=== PATIENT | female | born 1985 | race Caucasian/White ===

== ENCOUNTER 2016-06-23 21:42 | Emergency (ER) | payer MEDICAID ==
[~2016-06-23] VITALS: Ht 162.6 cm; Wt 99.8 kg
--- NOTE | 2016-06-23 22:20 | NUR ---
TO BED 21 A 30 YO FEMALE BIBSELF AND REPORTED, "BEEN HAVING VAGINAL BLEEDING X3 WEEKS, ON AND OFF, WORSE THIS PAST 3 DAYS."PATIENT IS AAOX4, AMBULATORY WITH STEADY GAIT. X4, 1 ALIVE, 3 MISCARRIAGE. PER PATIENT SHE IS NOT AT THIS TIME. VSS. INITIATED COMFORT MEASURES. AWAITING FOR ER MD SCOTT.
[2016-06-23] MEDS ORDERED: IV NS 0.9% 1,000 ML BAG IV ONE (22:30)
--- NOTE | 2016-06-23 22:35 | NUR ---
LAC #20 IV ACCESS. BLOOD SAMPLE COLLECTED SENT TO LAB
[2016-06-23] MEDS ORDERED: IV NS 0.9% 1,000 ML ONE (22:40)
[2016-06-23] MEDS ORDERED: IV SET PRIMARY PUMP SET 1 EA INFUS.SET MC ONE (22:41)
[2016-06-23 22:44] LABS: BASOPHILS % (AUTO) 0.5 % (0.0-2.0); EOSINOPHILS # (AUTO) 0.2 /CMM (0.0-0.7); EOSINOPHILS % (AUTO) 1.9 % (0.0-6.0); HEMATOCRIT 43 % (33-45); HEMOGLOBIN 13.8 g/dL (11.5-14.8); LYMPHOCYTES # (AUTO) 2.8 /CMM (0.8-4.8); LYMPHOCYTES % (AUTO) 34.5 % (20.0-44.0); MEAN CORPUSCULAR HEMOGLOBIN 25 PG (26.0-33.0); MEAN CORPUSCULAR HGB CONC 32 g/dl (31.0-36.0); MEAN CORPUSCULAR VOLUME 79 fL (82-100); MONOCYTES # (AUTO) 0.7 /CMM (0.1-1.30); MONOCYTES % (AUTO) 8.6 % (2.0-12.0); NEUTROPHILS # (AUTO) 4.4 /CMM (1.8-8.9); NEUTROPHILS % (AUTO) 54.5 % (43.0-81.0); PLATELET COUNT (AUTO) 341 /CMM (150-450); RDW COEFFICIENT OF VARIATION 14.6 (11.5-15.0); RED BLOOD CELL COUNT(AUTO) 5.44 MIL/uL (4.0-5.2)
[2016-06-23 22:52] LABS: CALCIUM, SERUM 8.9 mg/dL (8.5-10.1); CREATININE 0.8 mg/dL (0.6-1.3)
[2016-06-23 23:01] LABS: INR 0.94 (0.87-1.13)
--- NOTE | 2016-06-23 23:16 | NUR ---
urine collected and called lab for picking belt operator.
[2016-06-23 23:32] LABS: APPEARANCE,URINE CLEAR (CLEAR); BILIRUBIN,URINE NEGATIVE (NEGATIVE); BLOOD, URINE 2+ Ery/uL (NEGATIVE); COLOR,URINE YELLOW (YELLOW); KETONES,URINE NEGATIVE (NEGATIVE); LEUKOCYTE ESTERASE ,URINE NEGATIVE (NEGATIVE); NITRITE, URINE NEGATIVE (NEGATIVE); PROTEIN,URINE NEGATIVE (NEGATIVE); UGLUCOSE NEGATIVE (NEGATIVE); UROBILINOGEN,URINE 0.2 EU/dL (0.2)
--- NOTE | 2016-06-23 23:40 | NUR ---
IV removed. Catheter intact and site benign. Pressure and 4x4 applied to site. No bleeding noted. Patient discharged to home in stable condition. Written and verbal after care instructions given. Patient verbalizes understanding of instruction. Patient is ambulatory with steady gait, no further complaints.
[2016-06-23 23:48] LABS: ADD URINE CULTURE NO; MUCUS,URINE Rare /LPF (None Seen); RBC,URINE 0-2 /HPF (0-2); SQUAMOUS EPITHELIAL CELL,UR Rare /HPF (None Seen); WBC,URINE 0-2 /HPF (0-3)
[2016-06-23 23:58] VITALS: BP 140/89
== END 2016-06-23 23:58 | disposition home or self-care (01) ==
LOC: ER 21:47
DX: N93.9 Abnormal uterine and vaginal bleeding, unspecified (principal); D64.9 Anemia, unspecified; E28.2 Polycystic ovarian syndrome; J45.909 Unspecified asthma, uncomplicated; G93.2 Benign intracranial hypertension; R79.1 Abnormal coagulation profile; Z90.89 Acquired absence of other organs; Z90.49 Acquired absence of other specified parts of digestive tract; Z98.890 Other specified postprocedural states
CPT/HCPCS: 36415; 80048; 81001; 84703; 85025; 85730; 86850; 96360; 99284; A4606; J7030; Z7610; 81000-TC

== ENCOUNTER 2020-04-27 21:51 | Inpatient (IN) | payer MEDICAID, OTHER ==
[~2020-04-27] VITALS: Ht 162.6 cm; Wt 106.6 kg
--- NOTE | 2020-04-27 21:52 | NUR ---
BIBSELF C/O LOWER ABDOMINAL PAIN, HIP PAIN, HEADACHE, DIZZINESS X1 DAY LAST DOSE 650MG TYLENOL X1HR DRAFTER HEATING AND VENTILATING, PT AAOX4, DENIES ANY SOB. PLACED ON MONITOR. NOT IN ANY DISTRESS. VSS .PENDING ER PROVIDER SONIA
[2020-04-27] MEDS ORDERED: MORPHINE SULFATE INJ 4 MG/ML DISP.SYRIN ONE ×2 (22:23→23:22)
[2020-04-27] MEDS ORDERED: ONDANSETRON HCL/PF 4 MG/2 ML VIAL ONE (22:23)
--- NOTE | 2020-04-27 22:27 | NUR ---
COVID SWAB SENT TO LAB
[2020-04-27] MEDS ORDERED: IV NS 0.9% 1,000 ML BAG IV ONE (22:30)
[2020-04-27] MEDS ORDERED: ONDANSETRON HCL/PF 4 MG/2 ML VIAL IVP ONE (22:30)
[2020-04-27] MEDS ORDERED: MORPHINE SULFATE INJ 2 MG/ML DISP.SYRIN IV ONE ×2 (22:30→23:30)
[2020-04-27 22:33] LABS: BASOPHILS # (AUTO) 0.1 /CMM (0.0-0.2); EOSINOPHILS % (AUTO) 1.7 % (0.0-6.0); HEMATOCRIT 42 % (33-45); HEMOGLOBIN 13.6 g/dL (11.5-14.8); LYMPHOCYTES # (AUTO) 2.8 /CMM (0.8-4.8); MEAN CORPUSCULAR HGB CONC 33 g/dl (31.0-36.0); MEAN CORPUSCULAR VOLUME 77 fL (82-100); MONOCYTES # (AUTO) 0.8 /CMM (0.1-1.30); MONOCYTES % (AUTO) 9.9 % (2.0-12.0); NEUTROPHILS # (AUTO) 4.6 /CMM (1.8-8.9); NEUTROPHILS % (AUTO) 54.4 % (43.0-81.0); PLATELET COUNT (AUTO) 336 /CMM (150-450); RED BLOOD CELL COUNT(AUTO) 5.37 MIL/uL (4.0-5.2); WHITE BLOOD COUNT (AUTO) 8.5 K/uL (4.3-11.0)
[2020-04-27 22:42] LABS: CARBON DIOXIDE 25 mmol/L (21-32); CHLORIDE 104 mmol/L (98-107); CREATININE 0.8 mg/dL (0.6-1.3); GLUCOSE 109 mg/dL (74-106); SODIUM SERUM 139 mmol/L (136-145); UREA NITROGEN, BLOOD 12 mg/dL (7-18)
[2020-04-27 22:48] LABS: ALANINE AMINOTRANSFERASE 24 U/L (12-78); ALBUMIN 3.4 g/dL (3.4-5.0); ALKALINE PHOSPHATASE 104 U/L (46-116); ASPARTATE AMINOTRANSFERASE 17 U/L (15-37); BILIRUBIN,TOTAL 0.1 mg/dL (0.2-1.0); TOTAL PROTEIN, SERUM 7.1 g/dL (6.4-8.2)
[2020-04-27 23:47] LABS: BILIRUBIN,URINE NEGATIVE (NEGATIVE); COLOR,URINE YELLOW (YELLOW); LEUKOCYTE ESTERASE ,URINE NEGATIVE (NEGATIVE); NITRITE, URINE NEGATIVE (NEGATIVE); PROTEIN,URINE NEGATIVE (NEGATIVE); UGLUCOSE NEGATIVE (NEGATIVE); UROBILINOGEN,URINE 0.2 EU/dL (0.2)
[2020-04-28] MEDS ORDERED: MAG HYDROX/AL HYDROX/SIMETH 30 ML UDC PO PRN (01:00)
[2020-04-28] MEDS ORDERED: HYDROCODONE/APAP 5/325MG TABLET PO PRN (01:00)
[2020-04-28] MEDS ORDERED: TEMAZEPAM 15 MG CAPSULE PO PRN (01:00)
[2020-04-28] MEDS ORDERED: MAGNESIUM HYDROXIDE 30 ML UDC PO PRN (01:00)
[2020-04-28] MEDS ORDERED: ACETAMINOPHEN 325 MG TABLET PO PRN (01:00)
[2020-04-28] MEDS ORDERED: Z GUARD REMEDY 2 OZ OINT TP PRN (01:00)
--- NOTE | 2020-04-28 01:06 | NUR ---
PT ACCEPTED FOR ADMISSION. PENDING BED ASSIGNMENT AT THIS TIME
[2020-04-28] MEDS ORDERED: MORPHINE SULFATE INJ 4 MG/ML DISP.SYRIN ONE (03:36)
[2020-04-28] MEDS: MORPHINE SULFATE INJ 2 MG/ML DISP.SYRIN IV PRN ×4 (03:41→22:07)
--- NOTE | 2020-04-28 06:00 | NUR ---
PT MOVED TO ROOM 7 AT THIS TIME. AWAITING BED ASSIGN
[2020-04-28] MEDS ORDERED: PANTOPRAZOLE 40 MG TABLET.DR PO ONE (07:33)
[2020-04-28] MEDS: PANTOPRAZOLE 40 MG TABLET.DR PO SCH (07:36)
[2020-04-28] MEDS: IV NS 0.9% 1,000 ML IV PRN ×2 (07:43→10:57)
--- NOTE | 2020-04-28 07:45 | NUR ---
RECEIVED REPORT FROM SHAWNA SANTO FOR [facility]. PT IS AAOX4, NOT IN RESPIRATORY DISTRESS, V/S STABLE, KEPT RESTED AND COMFORTABLE. WILL CONTINUE TO MONITOR. AWAITING ROOM ASSIGNMENT.
[2020-04-28] MEDS ORDERED: HYDR200T81 PO (08:26)
[2020-04-28] MEDS ORDERED: NORE5TAB PO (08:26)
[2020-04-28] MEDS ORDERED: BUPR200T3 PO (08:26)
[2020-04-28] MEDS ORDERED: SUMA100T16 PO (08:26)
[2020-04-28] MEDS ORDERED: CHOL200059 PO (08:26)
--- NOTE | 2020-04-28 10:05 | NUR ---
REPORT GIVEN TO SHAWNA COLLIER FOR PATRICIA.
--- NOTE | 2020-04-28 10:20 | NUR ---
MS/RN NOTE PATIENT ARRIVED TO UNIT FLOOR BY ER NURSE. PATIENT A/O X4, STATES HAVING ABD/FLANK PAIN. PATIENT ON ROOM AIR, TOLERATING WELL, NO SOB NOTED, BREATHING EVEN, NON LABORED. SAFETY MEASURES IN PLACE, BED LOCKED AND IN LOWEST POSITION, CALL LIGHT WITHIN REACH. WILL CONTINUE TO MONITOR AND ENSURE SAFETY.
[2020-04-28] MEDS: CEFTRIAXONE 1 G in IV D5W 50 ML IV SCH (10:53)
[2020-04-28] MEDS: DOCUSATE SODIUM 100 MG CAPSULE PO SCH ×3 (10:53→16:32)
[2020-04-28] MEDS: ONDANSETRON HCL/PF 4 MG/2 ML VIAL IVP PRN ×3 (10:53→22:33)
--- NOTE | 2020-04-28 19:23 | NUR ---
MS/RN CLOSING NOTE PATIENT IS AWAKE IN BED. A/O X4. PATIENT ON ROOM AIR, TOLERATING WELL, NO SOB NOTED, BREATHING EVEN, NON LABORED. SAFETY MEASURES IN PLACE, BED LOCKED AND IN LOWEST POSITION, CALL LIGHT WITHIN REACH. ALL NEEDS MET THROUGHOUT THE SHIFT. WILL ENDORSE TO STONE BANKER NURSE.
--- NOTE | 2020-04-28 19:50 | NUR ---
MS/RN OPENING NOTE RECEIVED PATIENT RESTING IN BED. AWAKE, ALERT AND ORIENTED X 4. ABLE TO MAKE NEEDS KNOWN. NO COMPLAINTS OF PAIN AT THIS TIME. IV ACCESS TO LEFT AC INTACT AND PATENT. CONTINUES ON IV NS @ 125ML/HR. CONTINUES ON ROOM AIR WITH NO SIGNS OR SYMPTOMS OF RESPIRATORY DISTRESS NOTED. CALL LIGHT WITHIN REACH. ASPIRATION, FALL AND SAFETY PRECAUTIONS MAINTAINED. WILL CONTINUE TO MONITOR.
[2020-04-28 20:00] VITALS: BP_SYST 111; BP_SYST 99; BP_DIAS 57; BP_DIAS 73
[2020-04-28] MEDS: SENNOSIDES 8.6 MG TABLET PO SCH (22:02)
--- NOTE | 2020-04-28 22:10 | NUR ---
MS/RN NOTE C/O ABDOMINAL PAIN 09/17 - GIVEN PRN MORPHINE WITH PENDING EFFECT.
[2020-04-29] MEDS: MORPHINE SULFATE INJ 2 MG/ML DISP.SYRIN IV PRN ×5 (02:18→21:29)
[2020-04-29] MEDS ORDERED: NORETHINDRONE 5 MG PO SCH (02:30)
[2020-04-29] MEDS: IV NS 0.9% 1,000 ML IV PRN ×2 (05:44→19:46)
--- NOTE | 2020-04-29 06:20 | NUR ---
MS/RN CLOSING NOTE PATIENT CURRENTLY SLEEPING IN BED. ALERT AND ORIENTED X 4. ABLE TO MAKE NEEDS KNOWN. NO COMPLAINTS OF PAIN AT THIS TIME. IV ACCESS TO LEFT AC INTACT AND PATENT. CONTINUES ON IV NS @ 125ML/HR. CONTINUES ON IV ABX. CONTINUES ON ROOM AIR WITH NO SIGNS OR SYMPTOMS OF RESPIRATORY DISTRESS NOTED. CALL LIGHT WITHIN REACH. ASPIRATION, FALL AND SAFETY PRECAUTIONS MAINTAINED. WILL ENDORSE PLAN OF CARE TO ONCOMING SHIFT RN.
--- NOTE | 2020-04-29 07:09 | NUR ---
MS RN OPENING NOTEs RECEIVED PATIENT IN BED AWAKE, ALERT AND ORIENTED X 4. ABLE TO MAKE NEEDS KNOWN, NO COMPLAINTS OF PAIN OR ANY DISCOMFORTS AT THIS TIME. ON ROOM AIR, BREATHING EVEN AND UNLABORED, NO S/S OF RESPIRATORY DISTRESS NOTED. IVF OF NS @ 125ML/HR INFUSING WELL TO IV SITE ON LAC G#20. SAFETY MEASURES KEPT IN PLACE: BED IN LOWEST LOCKED POSITION, B/L SR UP X2 AND CALL LIGHT WITHIN REACH. WILL CONTINUE TO MONITOR PT ACCORDINGLY.
[2020-04-29 07:32] LABS: BASOPHILS % (AUTO) 0.4 % (0.0-2.0); EOSINOPHILS % (AUTO) 2.5 % (0.0-6.0); HEMATOCRIT 36 % (33-45); HEMOGLOBIN 11.6 g/dL (11.5-14.8); LYMPHOCYTES # (AUTO) 2.5 /CMM (0.8-4.8); LYMPHOCYTES % (AUTO) 37.9 % (20.0-44.0); MEAN CORPUSCULAR HGB CONC 33 g/dl (31.0-36.0); MEAN CORPUSCULAR VOLUME 78 fL (82-100); MONOCYTES # (AUTO) 0.6 /CMM (0.1-1.30); NEUTROPHILS # (AUTO) 3.3 /CMM (1.8-8.9); NEUTROPHILS % (AUTO) 50.2 % (43.0-81.0); PLATELET COUNT (AUTO) 282 /CMM (150-450); RED BLOOD CELL COUNT(AUTO) 4.54 MIL/uL (4.0-5.2); WHITE BLOOD COUNT (AUTO) 6.5 K/uL (4.3-11.0)
[2020-04-29 08:12] VITALS: BP 110/65
[2020-04-29] MEDS: PANTOPRAZOLE 40 MG TABLET.DR PO SCH (08:25)
[2020-04-29 08:26] LABS: CALCIUM, SERUM 8.7 mg/dL (8.5-10.1); CREATININE 0.8 mg/dL (0.6-1.3); MAGNESIUM 1.9 mg/dL (1.8-2.4); PHOSPHORUS 4.4 mg/dL (2.5-4.9); POTASSIUM 4.2 mmol/L (3.5-5.1)
[2020-04-29] MEDS: buPROPion SR 100 MG TABLET.ER PO SCH (08:31)
[2020-04-29] MEDS: DOCUSATE SODIUM 100 MG CAPSULE PO SCH ×3 (08:31→16:25)
[2020-04-29] MEDS: CHOLECALCIFEROL 1,000 UNIT TABLET (VIT D3) PO SCH (08:32)
[2020-04-29] MEDS: ONDANSETRON HCL/PF 4 MG/2 ML VIAL IVP PRN ×2 (08:32→19:39)
[2020-04-29] MEDS: HYDROXYCHLOROQUINE 200 MG TABLET PO SCH (09:45)
[2020-04-29] MEDS: CEFTRIAXONE 1 G in IV D5W 50 ML IV SCH (11:19)
[2020-04-29] MEDS: SUMATRIPTAN SUCCINATE 100 MG TABLET PO PRN (14:09)
[2020-04-29 16:00] VITALS: BP 128/79
--- NOTE | 2020-04-29 18:10 | NUR ---
RN NOTES PT C/O OF PAIN AND REDDENED AREA AROUND IV SITE ON LAC. REQUESTED TO REMOVED IT. PIV REMOVED, NO BLEEDING NOTED BUT AREA WARM TO TOUCH. APPLIED COLD COMPRESS. NEW IV ACCESS G#22 INSERTED TO RFA AND DATED. IV RESUMED. WILL CONTINUE TO MONITOR.
--- NOTE | 2020-04-29 18:52 | NUR ---
MS RN CLOSING NOTES PATIENT RESTING IN BED AT THIS TIME. A/O X4 X 4. ABLE TO MAKE NEEDS KNOWN. ON ROOM AIR, BREATHING EVEN AND UNLABORED, NO S/S OF RESPIRATORY DISTRESS NOTED. IVF OF NS @ 125ML/HR INFUSING WELL TO IV SITE ON RFA G#22. ALL NEEDS AND CARE ATTENDED WELL. SAFETY MEASURES KEPT IN PLACE: BED IN LOWEST LOCKED POSITION, B/L SR UP X2 AND CALL LIGHT WITHIN REACH. WILL ENDORSE TO PENCIL SORTER NURSE FOR PATRICIA.
[2020-04-29 20:00] VITALS: BP_SYST 140; BP_SYST 167; BP_DIAS 72; BP_DIAS 83
[2020-04-29] MEDS: SENNOSIDES 8.6 MG TABLET PO SCH (21:19)
--- NOTE | 2020-04-29 21:20 | NUR ---
PATIENT REFUSED THE IVF. IVF TURNED OFF.
[2020-04-30] MEDS: MORPHINE SULFATE INJ 2 MG/ML DISP.SYRIN IV PRN ×3 (02:29→12:26)
--- NOTE | 2020-04-30 07:38 | NUR ---
MS/RN OPENING NOTES RECEIVED PATIENT IS ON BED AWAKE ALERT AND ORIENTED X4. PATIENT IS ON ROOM AIR SATURATION 97%. PATIENT IN APPARENT RESPIRATORY DISTRESS NOTED. PATIENT COMPLAINED OF PAIN AT RATED 8/10. WILL CONTINUE TO MONITOR.
[2020-04-30] MEDS: PANTOPRAZOLE 40 MG TABLET.DR PO SCH (07:45)
--- NOTE | 2020-04-30 07:46 | NUR ---
MS/RN NOTES PATIENT COMPLAINED OF PAIN RATED 8/10 MORPHINE 4MG IV WAS GIVEN. WILL CONTINUE TO MONITOR.
[2020-04-30 08:17] VITALS: BP 120/67
[2020-04-30] MEDS: DOCUSATE SODIUM 100 MG CAPSULE PO SCH ×2 (08:49→12:25)
[2020-04-30] MEDS: CHOLECALCIFEROL 1,000 UNIT TABLET (VIT D3) PO SCH (08:49)
[2020-04-30] MEDS: buPROPion SR 100 MG TABLET.ER PO SCH (08:49)
[2020-04-30] MEDS: HYDROXYCHLOROQUINE 200 MG TABLET PO SCH (08:56)
[2020-04-30] MEDS: SUMATRIPTAN SUCCINATE 100 MG TABLET PO PRN (09:17)
[2020-04-30] MEDS: ONDANSETRON HCL/PF 4 MG/2 ML VIAL IVP PRN (10:12)
--- NOTE | 2020-04-30 10:13 | NUR ---
MS/RN NOTES PATIENT COMPLAINED OF NAUSEA ZOFRAN 4MG IV WAS GIVEN WILL CONTINUE TO MONITOR.
[2020-04-30] MEDS: CEFTRIAXONE 1 G in IV D5W 50 ML IV SCH (11:12)
[2020-04-30] MEDS ORDERED: LORAZEPAM 0.5 MG TABLET PO PRN (13:30)
[2020-04-30] MEDS ORDERED: CEPH500C2 PO (15:38)
[2020-04-30] MEDS ORDERED: HYDR-4303 PO (15:38)
--- NOTE | 2020-04-30 15:39 | NUR ---
MS/RN NOTES NORETHINDRONE 5MG PATIENT WAS AWARE THAT PHARMACY DOESN'T CARRY THIS MEDICATION AND PATIENT ALSO AWARE THAT SHE NEED TO PROVIDE IT, PATIENT VERBALIZED THAT SHE HAD IT AT HOME BUT SHE DOESN'T WANT TO BRING IT HERE. MD WAS AWARE.
[2020-04-30] MEDS ORDERED: TAMS-12 PO (15:43)
--- NOTE | 2020-04-30 16:00 | NUR ---
MS/RN NOTES PATIENT IS ALERT AND ORIENTED X4. PATIENT IS ON ROOM AIR SATURATION 98%. PATIENT IN NO APPARENT RESPIRATORY DISTRESS NOTED. NO COMPLAINED OF PAIN NOTED AT THIS TIME. SEEN AND EXAMINED BY MD WITH ORDERS MADE AND CARRIED OUT. ALL DUE MEDICATIONS WAS GIVEN. DISCHARGED INSTRUCTIONS WAS GIVEN AND PATIENT VERBALIZED UNDERSTANDING. PATIENT LEFT IN MEDICALLY STABLE CONDITION AMBULATORY SELF CARE.
[2020-04-30 16:09] VITALS: BP 155/82
== END 2020-04-30 16:49 | disposition home or self-care (01) | DRG 465 ==
LOC: ER 21:53 → TRANSITION 04-28 01:12 → MED 04-28 09:58
PROVIDERS: ADMIT Internal Medicine; ATTEND Internal Medicine
DX: N20.2 Calculus of kidney with calculus of ureter (principal); M32.9 Systemic lupus erythematosus, unspecified; J45.909 Unspecified asthma, uncomplicated; G93.2 Benign intracranial hypertension; G43.909 Migraine, unspecified, not intractable, without status migrainosus; E28.2 Polycystic ovarian syndrome; D64.9 Anemia, unspecified; Z90.49 Acquired absence of other specified parts of digestive tract; Z98.890 Other specified postprocedural states; Z87.441 Personal history of nephrotic syndrome; Z87.442 Personal history of urinary calculi
CPT/HCPCS: 36415; 71045-TC; 80048-TC; 80076-TC; 83605-TC; 83690-TC; 83735-TC; 84100-TC; 84484-TC; 84703-TC; 85025-TC; 85730-TC; 87040-TC; 87081-TC; 87086-TC; C9803; G0378; J0696; J2270; J2405; J3490; J7030; J7060

== ENCOUNTER 2020-05-12 20:36 | Emergency (ER) | payer MEDICAID ==
[~2020-05-12] VITALS: Ht 162.6 cm; Wt 106.6 kg
[~2020-05-12 20:36] MED LIST: BUPR200T3 PO; CEPH500C2 PO; CHOL200059 PO; HYDR-4303 PO; HYDR200T81 PO; NORE5TAB PO; SUMA100T16 PO; TAMS-12 PO
[2020-05-12] MEDS ORDERED: IV NS 0.9% 1,000 ML BAG IV ONE (21:30)
--- NOTE | 2020-05-12 21:35 | NUR ---
BIBSELF C/O SOB, GENERALIZED BODY ACHE, FEVER X2 DAYS. 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 TESTED NEG COVID X3 DAYS AGO. PT AAOX4, RR EVEN & UNLABORED. DENIES CP, SOB, DIZZINESS, N/V/D AT THIS TIME. PT SEEN & EVAL'D BY ELOY DOIP. WILL CONT TO MONITOR.
[2020-05-12 22:01] LABS: BASOPHILS # (AUTO) 0.1 /CMM (0.0-0.2); BASOPHILS % (AUTO) 1.3 % (0.0-2.0); EOSINOPHILS % (AUTO) 1.5 % (0.0-6.0); HEMATOCRIT 41 % (33-45); HEMOGLOBIN 13.5 g/dL (11.5-14.8); LYMPHOCYTES # (AUTO) 2.3 /CMM (0.8-4.8); LYMPHOCYTES % (AUTO) 24.1 % (20.0-44.0); MEAN CORPUSCULAR HGB CONC 33 g/dl (31.0-36.0); MEAN CORPUSCULAR VOLUME 76 fL (82-100); MONOCYTES # (AUTO) 0.9 /CMM (0.1-1.30); MONOCYTES % (AUTO) 9.2 % (2.0-12.0); NEUTROPHILS % (AUTO) 63.9 % (43.0-81.0); PLATELET COUNT (AUTO) 378 /CMM (150-450); RED BLOOD CELL COUNT(AUTO) 5.37 MIL/uL (4.0-5.2); WHITE BLOOD COUNT (AUTO) 9.4 K/uL (4.3-11.0)
[2020-05-12 22:13] LABS: CALCIUM, SERUM 9.2 mg/dL (8.5-10.1); CARBON DIOXIDE 26 mmol/L (21-32); CHLORIDE 105 mmol/L (98-107); CREATININE 0.7 mg/dL (0.6-1.3); GLUCOSE 90 mg/dL (74-106); SODIUM SERUM 140 mmol/L (136-145); UREA NITROGEN, BLOOD 12 mg/dL (7-18)
[2020-05-12 22:25] LABS: ALANINE AMINOTRANSFERASE 33 U/L (12-78); ALBUMIN 3.4 g/dL (3.4-5.0); ALKALINE PHOSPHATASE 115 U/L (46-116); ASPARTATE AMINOTRANSFERASE 22 U/L (15-37); BILIRUBIN,TOTAL 0.2 mg/dL (0.2-1.0); TOTAL PROTEIN, SERUM 7.2 g/dL (6.4-8.2)
[2020-05-12] MEDS ORDERED: MORPHINE SULFATE INJ 4 MG/ML DISP.SYRIN ONE (22:45)
[2020-05-12] MEDS ORDERED: ONDANSETRON HCL/PF 4 MG/2 ML VIAL ONE (22:45)
[2020-05-12] MEDS ORDERED: ONDANSETRON HCL/PF 4 MG/2 ML VIAL IV ONE (23:00)
[2020-05-12] MEDS ORDERED: MORPHINE SULFATE INJ 2 MG/ML DISP.SYRIN IV ONE (23:00)
[2020-05-12 23:19] LABS: BILIRUBIN,URINE NEGATIVE (NEGATIVE); COLOR,URINE YELLOW (YELLOW); LEUKOCYTE ESTERASE ,URINE NEGATIVE (NEGATIVE); NITRITE, URINE NEGATIVE (NEGATIVE); PROTEIN,URINE NEGATIVE (NEGATIVE); UGLUCOSE NEGATIVE (NEGATIVE); UROBILINOGEN,URINE 0.2 EU/dL (0.2)
--- NOTE | 2020-05-12 23:46 | NUR ---
Patient discharged to home in stable condition. Written and verbal after care instructions given. Patient verbalizes understanding of instruction. IV removed. Catheter intact and site benign. Pressure and 4x4 applied to site. No bleeding noted.
[2020-05-12 23:47] VITALS: BP 138/78
== END 2020-05-12 23:48 | disposition home or self-care (01) ==
LOC: ER 20:43
DX: R50.9 Fever, unspecified (principal); B34.9 Viral infection, unspecified; Z20.822 Contact with and (suspected) exposure to COVID-19; Z88.8 Allergy status to other drugs, medicaments and biological substances; Z88.6 Allergy status to analgesic agent; Z91.013 Allergy to seafood; E28.2 Polycystic ovarian syndrome; J45.909 Unspecified asthma, uncomplicated; N05.9 Unspecified nephritic syndrome with unspecified morphologic changes; M32.9 Systemic lupus erythematosus, unspecified; Z79.899 Other long term (current) drug therapy; R00.0 Tachycardia, unspecified
CPT/HCPCS: 36415; 71045; 80048; 80076; 81003; 83605; 84145; 84484; 85025; 85730; 87040 ×2; 87086; 87426; 87804; 93005; 96361; 96374; 96375; 99285; C9803; J2270; J2405; J7030

== ENCOUNTER 2020-05-13 19:23 | Inpatient (IN) | payer MEDICAID ==
[~2020-05-13] VITALS: Ht 162.6 cm; Wt 108.9 kg
[2020-05-13] MEDS ORDERED: ONDANSETRON HCL/PF 4 MG/2 ML VIAL ONE (20:20)
[2020-05-13] MEDS ORDERED: MORPHINE SULFATE INJ 4 MG/ML DISP.SYRIN ONE ×2 (20:20→21:28)
[2020-05-13] MEDS ORDERED: IV NS 0.9% 250 ML IV ONE (20:22)
[2020-05-13] MEDS ORDERED: IOHEXOL-300 100 ML VIAL IV ONE (20:22)
[2020-05-13 20:25] LABS: BILIRUBIN,URINE Negative (NEGATIVE); COLOR,URINE YELLOW (YELLOW); LEUKOCYTE ESTERASE ,URINE Negative (NEGATIVE); NITRITE, URINE Negative (NEGATIVE); PH,URINE 6.5 (5.0-8.0); PROTEIN,URINE Negative (NEGATIVE); UGLUCOSE Negative (NEGATIVE); UROBILINOGEN,URINE 0.2 EU/dL (0.2)
[2020-05-13 20:27] LABS: BASOPHILS # (AUTO) 0.1 /CMM (0.0-0.2); BASOPHILS % (AUTO) 0.8 % (0.0-2.0); EOSINOPHILS % (AUTO) 1.7 % (0.0-6.0); HEMATOCRIT 41 % (33-45); HEMOGLOBIN 13.4 g/dL (11.5-14.8); LYMPHOCYTES # (AUTO) 2.5 /CMM (0.8-4.8); LYMPHOCYTES % (AUTO) 33.6 % (20.0-44.0); MEAN CORPUSCULAR HGB CONC 33 g/dl (31.0-36.0); MEAN CORPUSCULAR VOLUME 78 fL (82-100); MONOCYTES # (AUTO) 0.7 /CMM (0.1-1.30); MONOCYTES % (AUTO) 9.5 % (2.0-12.0); NEUTROPHILS # (AUTO) 4.1 /CMM (1.8-8.9); NEUTROPHILS % (AUTO) 54.4 % (43.0-81.0); PLATELET COUNT (AUTO) 345 /CMM (150-450); RED BLOOD CELL COUNT(AUTO) 5.26 MIL/uL (4.0-5.2); WHITE BLOOD COUNT (AUTO) 7.5 K/uL (4.3-11.0)
[2020-05-13] MEDS ORDERED: IV NS 0.9% 1,000 ML BAG IV ONE (20:30)
[2020-05-13] MEDS ORDERED: MORPHINE SULFATE INJ 2 MG/ML DISP.SYRIN IV ONE ×2 (20:30→21:30)
[2020-05-13] MEDS ORDERED: ONDANSETRON HCL/PF 4 MG/2 ML VIAL IVP ONE (20:30)
[2020-05-13 20:49] LABS: CALCIUM, SERUM 9.2 mg/dL (8.5-10.1); CREATININE 0.8 mg/dL (0.6-1.3); POTASSIUM 4.1 mmol/L (3.5-5.1)
[2020-05-13 20:57] LABS: ALBUMIN 3.4 g/dL (3.4-5.0); BILIRUBIN,DIRECT 0.1 mg/dL (0.0-0.2); BILIRUBIN,TOTAL 0.2 mg/dL (0.2-1.0); TOTAL PROTEIN, SERUM 7.1 g/dL (6.4-8.2)
[2020-05-13] MEDS ORDERED: METOCLOPRAMIDE HCL 10 MG/2 ML VIAL IV ONE (22:00)
[2020-05-13] MEDS ORDERED: IV NS 0.9% 250 ML BAG IV ONE (22:00)
[2020-05-13] MEDS ORDERED: diphenhydrAMINE HCL 50 MG/ML VIAL IV ONE (22:00)
[2020-05-13] MEDS ORDERED: METOCLOPRAMIDE HCL 10 MG/2 ML VIAL ONE (22:01)
[2020-05-13] MEDS ORDERED: diphenhydrAMINE HCL 50 MG/ML VIAL ONE (22:03)
--- NOTE | 2020-05-13 22:24 | NUR ---
REPORT GIVEN TO SHAWNA YOUNG FOR PATRICIA PT WILL BE TRANSPORTED TO 3RD FLOOR
--- NOTE | 2020-05-13 23:07 | NUR ---
PT TRANSPORTED TO 3RD FLOOR
[2020-05-13 23:10] VITALS: BP 138/82
--- NOTE | 2020-05-13 23:31 | NUR ---
MS/DAIRY FARMER NOTE RECEIVED PATIENT FROM ER VIA RALYCIA AND 2 STAFF MEMBERS. PATIENT ACCOMPANIED TO ROOM 315-2. PATIENT IS ALERT AND ORIENTED X 4. ABLE TO MAKE NEEDS KNOWN. C/O PAIN TO BILATERAL HIPS AND ABDOMEN 8 - GIVEN PRN MORPHINE WITH GOOD EFFECT. PATIENT BEING ADMITTED FOR FEVER OF UNKNOWN ORIGIN AND INTRACTABLE HEADACHE. PATIENT AFEBRILE AT THIS TIME. RESPIRATIONS EVEN AND UNLABORED. CONTINUES ON ROOM AIR. IV ACCESS TO LEFT AC INTACT AND PATENT. ABDOMEN SOFT AND NON-TENDER. PATIENT IS AMBULATORY WITH A STEADY GAIT. PATIENT ORIENTED TO ROOM AND UNIT. CALL LIGHT WITHIN REACH. ASPIRATION, FALL AND SAFETY PRECAUTIONS MAINTAINED. WILL CONTINUE TO MONITOR.
[2020-05-14] MEDS ORDERED: ACETAMINOPHEN 325 MG TABLET PO PRN (00:30)
[2020-05-14] MEDS: IV NS 0.9% 1,000 ML IV PRN ×2 (00:52→16:41)
[2020-05-14] MEDS: ENOXAPARIN SODIUM 40 MG/0.4 ML DISP.SYRIN SQ SCH ×2 (00:53→21:37)
[2020-05-14] MEDS: ONDANSETRON HCL/PF 4 MG/2 ML VIAL IVP PRN ×2 (00:58→10:17)
[2020-05-14] MEDS: MORPHINE SULFATE INJ 2 MG/ML DISP.SYRIN IV PRN ×5 (00:59→20:24)
[2020-05-14] MEDS: ZOLPIDEM TARTRATE 5 MG TABLET PO PRN (01:41)
--- NOTE | 2020-05-14 06:10 | NUR ---
MS/RN CLOSING NOTE PATIENT CURRENTLY RESTING IN BED. AWAKE, ALERT AND ORIENTED X 4. ABLE TO MAKE NEEDS KNOWN. COMPLAINTS OF PAIN TO BILATERAL HIPS. GIVEN PRN MORPHINE WITH GOOD EFFECT. IV ACCESS TO LEFT AC INTACT AND PATENT. CONTINUES ON IV NS 0.9% @ 75ML/HR. CONTINUES ON REGULAR DIET. CALL LIGHT WITHIN REACH. ASPIRATION, FALL AND SAFETY PRECAUTIONS MAINTAINED. WILL ENDORSE PLAN OF CARE TO ONCOMING SHIFT.
[2020-05-14 06:19] LABS: BASOPHILS # (AUTO) 0.1 /CMM (0.0-0.2); BASOPHILS % (AUTO) 0.9 % (0.0-2.0); EOSINOPHILS % (AUTO) 2.9 % (0.0-6.0); HEMATOCRIT 36 % (33-45); HEMOGLOBIN 11.9 g/dL (11.5-14.8); LYMPHOCYTES # (AUTO) 3.1 /CMM (0.8-4.8); LYMPHOCYTES % (AUTO) 38.6 % (20.0-44.0); MEAN CORPUSCULAR HGB CONC 33 g/dl (31.0-36.0); MEAN CORPUSCULAR VOLUME 77 fL (82-100); MONOCYTES # (AUTO) 0.7 /CMM (0.1-1.30); MONOCYTES % (AUTO) 8.9 % (2.0-12.0); NEUTROPHILS # (AUTO) 3.9 /CMM (1.8-8.9); NEUTROPHILS % (AUTO) 48.7 % (43.0-81.0); PLATELET COUNT (AUTO) 323 /CMM (150-450); RED BLOOD CELL COUNT(AUTO) 4.69 MIL/uL (4.0-5.2); WHITE BLOOD COUNT (AUTO) 7.9 K/uL (4.3-11.0)
[2020-05-14 06:58] LABS: THYROID STIMULATING HORMONE 1.369 uIU/mL (0.358-3.74)
[2020-05-14 07:11] LABS: ALBUMIN 2.9 g/dL (3.4-5.0); BILIRUBIN,TOTAL 0.2 mg/dL (0.2-1.0); CALCIUM, SERUM 8.2 mg/dL (8.5-10.1); CREATININE 0.8 mg/dL (0.6-1.3); MAGNESIUM 1.8 mg/dL (1.8-2.4); POTASSIUM 4.1 mmol/L (3.5-5.1)
[2020-05-14] MEDS ORDERED: RIBO100T3 PO (07:32)
[2020-05-14] MEDS ORDERED: HYDR-3972 PO (07:32)
[2020-05-14] MEDS ORDERED: TAMS-12 PO (07:32)
[2020-05-14] MEDS ORDERED: LORA-259 PO (07:32)
[2020-05-14] MEDS ORDERED: FLUT16SP (07:32)
[2020-05-14 08:00] VITALS: BP 110/64
[2020-05-14 08:20] VITALS: BP 110/64
[2020-05-14] MEDS ORDERED: OXYB5TAB16 PO (10:15)
--- NOTE | 2020-05-14 13:05 | NUR ---
m/s machine sole leveler: md visit seen and examined by dr. wheeler with verbal order for ct left hip. order carried out.
--- NOTE | 2020-05-14 13:30 | NUR ---
m/s consumer analyst: notes ac (tech) called and informed me that pt has ct abdomen/pelvis done 2x already and too much radiation is not good for the pt and nothing was seen on her left hip (old fracture). dr. wheeler notified and made aware with order to do fluoroscopy spinal tap. ask dr. wheeler to coordinate with dr. alberto (radiologist) by giving his extension.
[2020-05-14] MEDS ORDERED: LORA2TAB95 PO (13:50)
--- NOTE | 2020-05-14 13:50 | NUR ---
m/s appeals specialist: notes pt provided consent the procedure for lumbar puncture and verbalized understanding.
[2020-05-14] MEDS ORDERED: FLUTICASONE PROPIONATE 16 GM BOTTLE NS PRN (14:00)
[2020-05-14] MEDS ORDERED: HYDROCODONE/APAP 5/325MG TABLET PO PRN (14:00)
[2020-05-14] MEDS ORDERED: SUMATRIPTAN SUCCINATE 100 MG TABLET PO PRN (14:00)
[2020-05-14] MEDS ORDERED: LORAZEPAM 1 MG TABLET PO PRN (14:30)
--- NOTE | 2020-05-14 14:43 | NUR ---
m/s bottle house quality control technician: notes morphine 4mg ivp due to 8/10 hip, back and abdomen and ativan 2mg po prior to lumbar puncture and pt's request given by rn. radiology dept. notified and made aware that meds were given.
--- NOTE | 2020-05-14 15:10 | NUR ---
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
--- NOTE | 2020-05-14 15:13 | NUR ---
m/s cell operator: notes unable to reassess pain level due to not in department, pt in radiology dept for lumbar puncture procedure.
[2020-05-14 16:00] VITALS: BP 122/69
--- NOTE | 2020-05-14 16:18 | NUR ---
m/s quality assurance: notes pt back from lumbar puncture and crying for pain and request for pain additional morphine. offered norco, but pt refused and wants me to call the doctor. received 30ml of fluid collected from lumbar puncture. pt is concerned about meningitis per dr. alberto. dr. wheeler notified and made aware re: pt's concern and informed me that she already talked to her earlier and that she doesn't have meningitis and no test needed. also mentioned about the pain with no new order received.
--- NOTE | 2020-05-14 16:45 | NUR ---
m/s ballistic technician: notes checked on pt and noted pt using her cell phone, then started to cry when calmly approached her, still asking for a little bit of pain med, but still refused norco, stated, "it doesn't help me." will continue to monitor.
[2020-05-14] MEDS: OXYBUTYNIN CHLORIDE 5 MG TABLET PO SCH (17:10)
--- NOTE | 2020-05-14 17:12 | NUR ---
m/s medical technician: notes offered dinner, but pt refused. pt stopped crying. pt still insisting to ask the doctor for iv pain medication. pt still refuses norco when offered.
--- NOTE | 2020-05-14 18:45 | NUR ---
m/s senior software project manager: notes pt lying in bed with eyes close. no distress noted. will continue to monitor.
--- NOTE | 2020-05-14 19:00 | NUR ---
RECEIVED IN BED ALERT AND ORIENTATED EYE CLOSED APPEARS TO BE ASLEEP SEMIFOWLERS POSITION RSP EVEN AND REGULR
--- NOTE | 2020-05-14 19:00 | NUR ---
m/s photo technologist: notes report given to willa (kev) for continuity of care.
[2020-05-14 20:00] VITALS: BP 121/72
[2020-05-14 20:30] VITALS: BP 121/72
[2020-05-15] VITALS: BP 121/72
--- NOTE | 2020-05-15 04:24 | NUR ---
ENDING NOTES: MEDICATED AT 20:30 WITH ORDERED IV MEDICATION. EFFECTIVE TO RELIEVE HER H/A AND BACK ACHE. SLEPT THRU THENIGHT. CHECKED Q1HOUR CALLLIGHT NEAR HER RIGHT SIDE WITHIN REACH. IV INFUSING LEFT AC. AMBULATED TO THE BATHROOM WITH NURSE AT HER SIDE X2 STEADY ON HER LEGS. ON LOVENOX FOR VTE. AFEBRILE THIS 12 HOUR
[2020-05-15] MEDS: MORPHINE SULFATE INJ 2 MG/ML DISP.SYRIN IV PRN ×4 (04:54→21:43)
[2020-05-15] MEDS: IV NS 0.9% 1,000 ML IV PRN (05:42)
[2020-05-15 06:44] LABS: BASOPHILS # (AUTO) 0.1 /CMM (0.0-0.2); BASOPHILS % (AUTO) 0.8 % (0.0-2.0); EOSINOPHILS % (AUTO) 2.7 % (0.0-6.0); HEMATOCRIT 35 % (33-45); HEMOGLOBIN 11.5 g/dL (11.5-14.8); LYMPHOCYTES # (AUTO) 2.2 /CMM (0.8-4.8); LYMPHOCYTES % (AUTO) 33.5 % (20.0-44.0); MEAN CORPUSCULAR HGB CONC 33 g/dl (31.0-36.0); MEAN CORPUSCULAR VOLUME 77 fL (82-100); MONOCYTES # (AUTO) 0.6 /CMM (0.1-1.30); MONOCYTES % (AUTO) 9.3 % (2.0-12.0); NEUTROPHILS # (AUTO) 3.5 /CMM (1.8-8.9); NEUTROPHILS % (AUTO) 53.7 % (43.0-81.0); PLATELET COUNT (AUTO) 295 /CMM (150-450); RED BLOOD CELL COUNT(AUTO) 4.54 MIL/uL (4.0-5.2); WHITE BLOOD COUNT (AUTO) 6.6 K/uL (4.3-11.0)
[2020-05-15 06:49] LABS: CALCIUM, SERUM 8.6 mg/dL (8.5-10.1); CREATININE 0.8 mg/dL (0.6-1.3); MAGNESIUM 1.8 mg/dL (1.8-2.4); PHOSPHORUS 4.5 mg/dL (2.5-4.9); POTASSIUM 4.2 mmol/L (3.5-5.1)
--- NOTE | 2020-05-15 07:15 | NUR ---
MS OPENING NOTE PATIENT SLEEPING IN ROOM, EASILY AWAKENED, ALERT & ORIENTED X 4. NO ACUTE DISTRESS OR SHORTNESS OF BREATH NOTED. NO PAIN REPORTED AT THIS TIME. SAFETY MEASURES IN PLACE, BED IN LOWEST POSITION, CALL LIGHT WITHIN REACH AND BED ALARM ON. WILL CONTINUE TO MONITOR
[2020-05-15 08:00] VITALS: BP 114/66
[2020-05-15 09:07] LABS: *ANA ANTI-CENTROMERE B AB <0.2 AI (0.0-0.9); *ANA ANTI-DNA(DS) AB, QN <1 IU/mL (0-9); *ANA ANTI-JO-1 <0.2 AI (0.0-0.9); *ANA ANTICHROMATIN ANTIBODY <0.2 AI (0.0-0.9); *ANA RNP ANTIBODIES <0.2 AI (0.0-0.9); *ANA SJOGREN'S ANTI-SS-A <0.2 AI (0.0-0.9); *ANA SJOGREN'S ANTI-SS-B <0.2 AI (0.0-0.9); *ANAANTI-SCLERODERMA-70 AB <0.2 AI (0.0-0.9); *ANASMITH AB <0.2 AI (0.0-0.9)
[2020-05-15] MEDS: buPROPion SR 100 MG TABLET.ER PO SCH (09:16)
[2020-05-15] MEDS: CHOLECALCIFEROL 1,000 UNIT TABLET (VIT D3) PO SCH (09:16)
[2020-05-15] MEDS: OXYBUTYNIN CHLORIDE 5 MG TABLET PO SCH ×3 (09:16→17:30)
[2020-05-15] MEDS: TAMSULOSIN 0.4 MG CAP.SR.24H PO SCH (09:17)
[2020-05-15] MEDS: HYDROXYCHLOROQUINE 200 MG TABLET PO SCH (09:21)
--- NOTE | 2020-05-15 11:45 | NUR ---
MS RN NOTES PATIENT TAKEN FOR HEAD CT IN STABLE CONDITION
--- NOTE | 2020-05-15 11:51 | NUR ---
MS RN NOTES PATIENT COMPLAINED OF BLURRED VISION FOR ABOUT 30 MINS. PATIENT ALERT AND ORIENTED X 4. VITAL SIGNS BP: 127/67, HR: 87, RR: 19, O2: 96% ON ROOM AIR. NO ACUTE DISTRESS NOTED. RELAYED TO DR. FUENTES WITH NEW ORDER FOR CT HEAD WITHOUT CONTRAST. ORDERS CLARIFIED AND READBACK WITH MD. NOTED AND CARRIED OUT. WILL CONTINUE TO MONITOR PATIENT
--- NOTE | 2020-05-15 12:13 | NUR ---
MS RN NOTES PATIENT CAME BACK FROM CT. PATIENT ALERT AND ORIENTED X 4. NO ACUTE DISTRESS OR SHORTNESS OF BREATH NOTED. WILL CONTINUE TO MONITOR
--- NOTE | 2020-05-15 12:30 | NUR ---
MS RN NOTE PATIENT SEEN AND EVALUATED BY DR. WEN. PER MD SHE WILL CONTACT PAIN MANAGEMENT DRJaswinder FOR REFERRAL. NO NEW ORDERS MADE AT THIS TIME
[2020-05-15 16:00] VITALS: BP 118/66
--- NOTE | 2020-05-15 18:54 | NUR ---
MS CLOSING NOTE PATIENT RESTING IN BED, ALERT AND ORIENTED X 4. NO ACUTE DISTRESS OR SHORTNESS OF BREATH NOTED. IV NS 75 ML/HR INFUSING ON LEFT AC. SAFETY MEASURES IN PLACE, BED IN LOWEST POSITION, CALL LIGHT WITHIN REACH AND BED ALARM ON. WILL ENDORSE TO QUILL PICKING MACHINE OPERATOR NURSE FOR CONTINUITY OF CARE.
--- NOTE | 2020-05-15 19:30 | NUR ---
MS/RN OPENING NOTES RECEIVED PATIENT IN BED RESTING. PATIENT IS ALERT AND ORIENTED X 4. PATIENTS BREATHING IS EVEN AND UNLABORED. NO SIGNS ON SOB OR RESPIRATORY NOTED. PATIENT IN NO SIGNS OF DISTRESS. SAFETY MEASURES ARE IN PLACE, BED IS LOCKED AND PLACED IN THE LOW POSITION, CALL LIGHT IS WITHIN REACH. WILL CONTINUE WITH PATIENT PLAN OF CARE.
[2020-05-15 20:00] VITALS: BP 115/51
[2020-05-15] MEDS: ONDANSETRON HCL/PF 4 MG/2 ML VIAL IVP PRN (21:39)
[2020-05-15] MEDS: ENOXAPARIN SODIUM 40 MG/0.4 ML DISP.SYRIN SQ SCH (21:39)
--- NOTE | 2020-05-15 21:45 | NUR ---
MS/RN NOTES PATIENT STATED SHE IS EXPERIENCING PAIN, BACK, ABD, HEAD AREA. PATIENT GIVEN MORPHINE 4MG/2ML IVP. PATIENT V/S ARE STABLE.
[2020-05-15] MEDS: ZOLPIDEM TARTRATE 5 MG TABLET PO PRN (23:31)
--- NOTE | 2020-05-15 23:35 | NUR ---
MS/RN NOTES PATIENT REQUESTING FOR SLEEPING AID. PATIENT GIVEN AMBIEN 10 MG PO. PATIENT IN NO SIGNS OF DISTRESS.
[2020-05-16] MEDS: ONDANSETRON HCL/PF 4 MG/2 ML VIAL IVP PRN ×2 (05:16→13:22)
[2020-05-16] MEDS: MORPHINE SULFATE INJ 2 MG/ML DISP.SYRIN IV PRN (05:16)
--- NOTE | 2020-05-16 05:16 | NUR ---
MS/RN NOTES PATIENT STATED SHE IS EXPERIENCING PAIN, BACK, ABD, HEAD AREA. PATIENT GIVEN MORPHINE 4MG/2ML IVP. PATIENT V/S ARE STABLE, PATIENT IN NO DISTRESS.
[2020-05-16 05:55] LABS: BASOPHILS # (AUTO) 0.1 /CMM (0.0-0.2); BASOPHILS % (AUTO) 1.1 % (0.0-2.0); EOSINOPHILS % (AUTO) 2.6 % (0.0-6.0); HEMATOCRIT 36 % (33-45); HEMOGLOBIN 11.7 g/dL (11.5-14.8); LYMPHOCYTES # (AUTO) 2.5 /CMM (0.8-4.8); LYMPHOCYTES % (AUTO) 35.3 % (20.0-44.0); MEAN CORPUSCULAR HGB CONC 33 g/dl (31.0-36.0); MEAN CORPUSCULAR VOLUME 77 fL (82-100); MONOCYTES # (AUTO) 0.7 /CMM (0.1-1.30); MONOCYTES % (AUTO) 9.4 % (2.0-12.0); NEUTROPHILS # (AUTO) 3.6 /CMM (1.8-8.9); NEUTROPHILS % (AUTO) 51.6 % (43.0-81.0); PLATELET COUNT (AUTO) 303 /CMM (150-450); RED BLOOD CELL COUNT(AUTO) 4.67 MIL/uL (4.0-5.2)
[2020-05-16 06:35] LABS: CREATININE 0.9 mg/dL (0.6-1.3); MAGNESIUM 1.9 mg/dL (1.8-2.4); POTASSIUM 4.1 mmol/L (3.5-5.1)
--- NOTE | 2020-05-16 06:45 | NUR ---
MS/RN CLOSING NOTES PATIENT IN BED RESTING. PATIENT IS ALERT AND ORIENTED X 4. PATIENTS BREATHING IS EVEN AND UNLABORED. NO SIGNS ON SOB OR RESPIRATORY NOTED. PATIENT IN NO SIGNS OF DISTRESS. ALL NEEDS HAVE BEEN MET. SAFETY MEASURES ARE IN PLACE, BED IS LOCKED AND PLACED IN THE LOW POSITION, CALL LIGHT IS WITHIN REACH. WILL ENDORSE CARE TO DAY SHIFT NURSE.
--- NOTE | 2020-05-16 07:20 | NUR ---
MS OPENING NOTE PATIENT SLEEPING IN BED, EASILY AWAKENED, ALERT AND ORIENTED X 4. NO SIGNS OF ACUTE DISTRESS OR SHORTNESS OF BREATH NOTED. PATIENT'S BREATHING EVEN AND UNLABORED. SAFETY MEASURES IN PLACE, BED IS LOCKED AND IN LOWEST POSITIONS, CALL LIGHT WITHIN REACH. WILL CONTINUE TO MONITOR
[2020-05-16 08:00] VITALS: BP 113/72
[2020-05-16] MEDS: HYDROXYCHLOROQUINE 200 MG TABLET PO SCH (09:28)
[2020-05-16] MEDS: TAMSULOSIN 0.4 MG CAP.SR.24H PO SCH (09:28)
[2020-05-16] MEDS: CHOLECALCIFEROL 1,000 UNIT TABLET (VIT D3) PO SCH (09:28)
[2020-05-16] MEDS: buPROPion SR 100 MG TABLET.ER PO SCH (09:28)
[2020-05-16] MEDS: OXYBUTYNIN CHLORIDE 5 MG TABLET PO SCH ×3 (09:28→17:00)
[2020-05-16] MEDS ORDERED: MORPHINE SULFATE INJ 2 MG/ML DISP.SYRIN IV PRN (10:00)
[2020-05-16] MEDS ORDERED: HYDROCODONE/APAP 10/325MG TABLET PO PRN (10:00)
--- NOTE | 2020-05-16 10:00 | NUR ---
MS RN NOTES PATIENT SEEN AND EVALUATED BY DR. TANYA PRITCHARD WITH NEW ORDERS MADE, NOTED AND CARRIED OUT.
--- NOTE | 2020-05-16 12:19 | NUR ---
MS RN NOTES CLARIFIED WITH DR. TANYA PRITCHARD REGARDING BILATERAL HIP X-RAY AND LUMBAR SPINE X-RAY (AP/LATERAL) AND MD SAID TO PUT IN THE ORDER FOR BILATERAL HIP X-RAY AND LUMBAR SPINE X-RAY (AP/LATERAL). ORDERS CLARIFIED AND READ BACK TO MD. ORDERS NOTED AND CARRIED OUT
--- NOTE | 2020-05-16 12:42 | NUR ---
MS RN NOTES X-RAY OF BILATERAL HIP X-RAY AND LUMBAR SPINE X-RAY (AP/LATERAL) DONE AT THE BEDSIDE. PATIENT ALERT AND ORIENTED X 4. NO ACUTE DISTRESS OR SOB NOTES. WILL CONTINUE TO MONITOR
[2020-05-16 16:01] VITALS: BP 146/84
--- NOTE | 2020-05-16 17:45 | NUR ---
MS DISCHARGE NOTE PATIENT DISCHARGED HOME IN STABLE CONDITION, VITAL SIGNS WNL, ALERT AND ORIENTED X4, NO ACUTE DISTRESS OR SHORTNESS OF BREATH NOTED. PATIENT AMBULATORY WITH STEADY GATE. DISCHARGE INSTRUCTIONS GIVEN TO PATIENT, INCLUDING FOLLOW UP WITH PRIMARY CARE PROVIDER, PATIENT VERBALIZED UNDERSTANDING. IV ACCESS REMOVED, NO BLEEDING OR SWELLING NOTED. PATIENT SKIN INTACT. ALL BELONGINGS ACCOUNTED FOR. PATIENT ASSISTED TO THE LOBBY AND PICKED UP BY PRIVATE CAR IN STABLE CONDITION.
== END 2020-05-16 18:00 | disposition home health service (06) | DRG 346 ==
LOC: ER 19:23 → MED 22:11
PROVIDERS: ADMIT Nurse Practitioner Acute Care; ATTEND Student in an Organized Health Care Education/Training Program
DX: M32.9 Systemic lupus erythematosus, unspecified (principal); N04.9 Nephrotic syndrome with unspecified morphologic changes; G93.2 Benign intracranial hypertension; G43.909 Migraine, unspecified, not intractable, without status migrainosus; J45.909 Unspecified asthma, uncomplicated; E28.2 Polycystic ovarian syndrome; Z87.441 Personal history of nephrotic syndrome; G89.4 Chronic pain syndrome; Z90.49 Acquired absence of other specified parts of digestive tract; Z88.8 Allergy status to other drugs, medicaments and biological substances; Z91.013 Allergy to seafood; Z79.899 Other long term (current) drug therapy; M25.552 Pain in left hip; Z87.81 Personal history of (healed) traumatic fracture; H53.8 Other visual disturbances; M16.12 Unilateral primary osteoarthritis, left hip; M47.816 Spondylosis without myelopathy or radiculopathy, lumbar region; N20.1 Calculus of ureter
CPT/HCPCS: 36415; 62270; 70450-TC; 72100-TC; 73521; 80048-TC; 80053-TC; 80076-TC; 83690-TC; 83735-TC; 84100-TC; 84443-TC; 84703-TC; 85025-TC; 85652-TC; 85730-TC; 86140-TC; 86225; 86235; 87081-TC; G0378; J1200; J1650; J2270; J2405; J2765; J7030; J7050; Q9967

== ENCOUNTER 2020-06-11 23:08 | Emergency (ER) | payer MEDICAID ==
[~2020-06-11] VITALS: Ht 162.6 cm; Wt 104.3 kg
[~2020-06-11 23:08] MED LIST changes: -CEPH500C2 PO; +FLUT16SP; +HYDR-3972 PO; -HYDR-4303 PO; +LORA2TAB95 PO; -NORE5TAB PO; +OXYB5TAB16 PO; +RIBO100T3 PO
--- NOTE | 2020-06-11 23:20 | NUR ---
bibself c/o right flank pain radiating to abd x 1 day. also w/ c/o n/v. 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 pt endorsed hx of kidney failure and dialysis in the past. currently not on HD but remained under a care of a sunglass clip attacher. pt was placed in bed 2 ER on a monitor
[2020-06-11] MEDS ORDERED: ONDANSETRON HCL/PF 4 MG/2 ML VIAL ONE (23:35)
[2020-06-11] MEDS ORDERED: MORPHINE SULFATE INJ 4 MG/ML DISP.SYRIN ONE (23:35)
--- NOTE | 2020-06-11 23:55 | NUR ---
pt unable to use a bathroom to provide urine sample. pt was hooked up to the IVF. she will try giving a urine sample after receiving the fluid
[2020-06-12] MEDS ORDERED: MORPHINE SULFATE INJ 2 MG/ML DISP.SYRIN IV ONE
[2020-06-12 00:10] LABS: BASOPHILS % (AUTO) 0.4 % (0.0-2.0); EOSINOPHILS % (AUTO) 1.8 % (0.0-6.0); HEMATOCRIT 41 % (33-45); HEMOGLOBIN 13.6 g/dL (11.5-14.8); LYMPHOCYTES # (AUTO) 2.6 /CMM (0.8-4.8); LYMPHOCYTES % (AUTO) 29.4 % (20.0-44.0); MEAN CORPUSCULAR HGB CONC 33 g/dl (31.0-36.0); MEAN CORPUSCULAR VOLUME 77 fL (82-100); MONOCYTES # (AUTO) 0.8 /CMM (0.1-1.30); MONOCYTES % (AUTO) 9.2 % (2.0-12.0); NEUTROPHILS # (AUTO) 5.3 /CMM (1.8-8.9); NEUTROPHILS % (AUTO) 59.2 % (43.0-81.0); PLATELET COUNT (AUTO) 371 /CMM (150-450); RED BLOOD CELL COUNT(AUTO) 5.28 MIL/uL (4.0-5.2)
[2020-06-12 00:17] LABS: CALCIUM, SERUM 9.8 mg/dL (8.5-10.1); CREATININE 0.7 mg/dL (0.6-1.3); POTASSIUM 3.8 mmol/L (3.5-5.1)
[2020-06-12 00:24] LABS: ALBUMIN 3.7 g/dL (3.4-5.0); BILIRUBIN,DIRECT 0.1 mg/dL (0.0-0.2); BILIRUBIN,TOTAL 0.2 mg/dL (0.2-1.0); TOTAL PROTEIN, SERUM 7.6 g/dL (6.4-8.2)
[2020-06-12] MEDS ORDERED: HYDROMORPHONE 1 MG/1 ML DISP.SYRIN ONE (01:28)
[2020-06-12] MEDS ORDERED: HYDROMORPHONE 1 MG/1 ML DISP.SYRIN IV ONE (01:30)
--- NOTE | 2020-06-12 02:19 | NUR ---
pt still can not provide urine sample. aware. will f/u again
[2020-06-12] MEDS ORDERED: CEPH500C2 PO (02:22)
[2020-06-12] MEDS ORDERED: OXYC1TAB12 PO (02:22)
[2020-06-12] MEDS ORDERED: ONDANSETRON HCL/PF 4 MG/2 ML VIAL ONE (04:20)
--- NOTE | 2020-06-12 04:24 | NUR ---
pt still unable to provide urine sample and with c/o nausea. made aware w/ a new order for a liter of NS and zofran IV. noted and carried out
[2020-06-12] MEDS ORDERED: ONDANSETRON HCL/PF 4 MG/2 ML VIAL IVP ONE ×2 (04:30)
[2020-06-12] MEDS ORDERED: IV NS 0.9% 1,000 ML BAG IV ONE ×2 (04:30)
--- NOTE | 2020-06-12 05:34 | NUR ---
URINE SAMPLE COLLECTED AND SENT TO LAB
--- NOTE | 2020-06-12 05:39 | NUR ---
URINE SAMPLE COLLECTED AND SENT TO THE LAB.
[2020-06-12 05:51] LABS: BILIRUBIN,URINE NEGATIVE (NEGATIVE); COLOR,URINE YELLOW (YELLOW); PH,URINE 5.5 (5.0-8.0); PROTEIN,URINE NEGATIVE (NEGATIVE); UGLUCOSE NEGATIVE (NEGATIVE)
[2020-06-12 05:52] LABS: LEUKOCYTE ESTERASE ,URINE NEGATIVE (NEGATIVE); NITRITE, URINE NEGATIVE (NEGATIVE); UROBILINOGEN,URINE 0.2 EU/dL (0.2)
--- NOTE | 2020-06-12 06:04 | NUR ---
pt is medically stable for d/c. IV removed. Catheter intact and site benign. Pressure and 4x4 applied to site. No bleeding noted.Patient discharged to home in stable condition. Rx and Written and verbal after care instructions given. Patient verbalizes understanding of instruction.
[2020-06-12 06:06] VITALS: BP 131/84
== END 2020-06-12 06:06 | disposition home or self-care (01) ==
LOC: ER 23:10
DX: N39.0 Urinary tract infection, site not specified (principal); R11.2 Nausea with vomiting, unspecified; J45.909 Unspecified asthma, uncomplicated; F10.10 Alcohol abuse, uncomplicated; Y90.9 Presence of alcohol in blood, level not specified; Z90.49 Acquired absence of other specified parts of digestive tract; Z90.89 Acquired absence of other organs; Z91.013 Allergy to seafood; Z88.8 Allergy status to other drugs, medicaments and biological substances; Z88.6 Allergy status to analgesic agent; Z79.899 Other long term (current) drug therapy
CPT/HCPCS: 36415; 74176; 80048; 80076; 81003; 83690; 84703; 85025; 96361 ×2; 96374; 96375 ×2; 96376; 99285; J1170; J2270; J2405 ×2; J7030

== ENCOUNTER 2020-07-12 22:41 | Emergency (ER) | payer MEDICAID ==
[~2020-07-12] VITALS: Ht 162.6 cm; Wt 104.3 kg
[~2020-07-12 22:41] MED LIST changes: +CEPH500C2 PO; +OXYC1TAB12 PO
--- NOTE | 2020-07-12 22:46 | NUR ---
pt bibself c/o bilateral flank pain. Pt aaox4 breathing evenly and unlabored. Pt has hx of lupus and kidney infections and stones. Pt skin is warm, dry, and intact. Rt ac 20g initiated. blood obtained and sent to lab. Pt attached to monitor and pox. pt unable to give urine at this moment, aware. Pt given blanket and call light within reach
[2020-07-12] MEDS ORDERED: MORPHINE SULFATE INJ 4 MG/ML DISP.SYRIN ONE (23:06)
[2020-07-12] MEDS ORDERED: ONDANSETRON HCL/PF 4 MG/2 ML VIAL ONE (23:06)
[2020-07-12] MEDS: IV NS 0.9% 1,000 ML BAG IV ONE (23:15)
[2020-07-12] MEDS: MORPHINE SULFATE INJ 2 MG/ML DISP.SYRIN IV ONE (23:15)
[2020-07-12] MEDS: ONDANSETRON HCL/PF 4 MG/2 ML VIAL IVP ONE (23:15)
[2020-07-12 23:23] LABS: BASOPHILS # (AUTO) 0.1 /CMM (0.0-0.2); EOSINOPHILS % (AUTO) 1.3 % (0.0-6.0); HEMATOCRIT 42 % (33-45); HEMOGLOBIN 13.7 g/dL (11.5-14.8); LYMPHOCYTES # (AUTO) 2.4 /CMM (0.8-4.8); LYMPHOCYTES % (AUTO) 23.3 % (20.0-44.0); MEAN CORPUSCULAR HGB CONC 33 g/dl (31.0-36.0); MEAN CORPUSCULAR VOLUME 76 fL (82-100); MONOCYTES # (AUTO) 0.7 /CMM (0.1-1.30); MONOCYTES % (AUTO) 7.1 % (2.0-12.0); NEUTROPHILS # (AUTO) 6.9 /CMM (1.8-8.9); NEUTROPHILS % (AUTO) 67.3 % (43.0-81.0); PLATELET COUNT (AUTO) 346 /CMM (150-450); RED BLOOD CELL COUNT(AUTO) 5.44 MIL/uL (4.0-5.2); WHITE BLOOD COUNT (AUTO) 10.2 K/uL (4.3-11.0)
[2020-07-12 23:34] LABS: CALCIUM, SERUM 9.3 mg/dL (8.5-10.1); CREATININE 0.9 mg/dL (0.6-1.3); POTASSIUM 3.7 mmol/L (3.5-5.1)
[2020-07-12 23:39] LABS: ALBUMIN 3.5 g/dL (3.4-5.0); BILIRUBIN,TOTAL 0.1 mg/dL (0.2-1.0); TOTAL PROTEIN, SERUM 7.2 g/dL (6.4-8.2)
--- NOTE | 2020-07-13 00:52 | NUR ---
called lab for f/u on urine.
[2020-07-13 00:54] LABS: BILIRUBIN,URINE Negative (NEGATIVE); COLOR,URINE YELLOW (YELLOW); LEUKOCYTE ESTERASE ,URINE Negative (NEGATIVE); NITRITE, URINE Negative (NEGATIVE); PH,URINE 5.5 (5.0-8.0); PROTEIN,URINE Negative (NEGATIVE); UGLUCOSE Negative (NEGATIVE); UROBILINOGEN,URINE 0.2 EU/dL (0.2)
[2020-07-13] MEDS: MORPHINE SULFATE INJ 2 MG/ML DISP.SYRIN IV ONE (01:10)
--- NOTE | 2020-07-13 01:15 | NUR ---
Patient discharged to home in stable condition. Written and verbal after care instructions given. Patient verbalizes understanding of instruction. IV removed. Catheter intact and site benign. Pressure and 4x4 applied to site. No bleeding noted. Pt ambulatory with a steady gait
[2020-07-13] MEDS ORDERED: MORPHINE SULFATE INJ 4 MG/ML DISP.SYRIN ONE (01:18)
[2020-07-13 01:31] VITALS: BP 113/66
== END 2020-07-13 00:15 | disposition home or self-care (01) ==
LOC: ER 22:44
DX: G89.4 Chronic pain syndrome (principal); M32.9 Systemic lupus erythematosus, unspecified; J45.909 Unspecified asthma, uncomplicated; D64.9 Anemia, unspecified; Z90.49 Acquired absence of other specified parts of digestive tract; Z90.89 Acquired absence of other organs; Z88.8 Allergy status to other drugs, medicaments and biological substances; Z88.6 Allergy status to analgesic agent; Z91.013 Allergy to seafood; Z79.899 Other long term (current) drug therapy
CPT/HCPCS: 36415; 80048; 80076; 81003; 83690; 85025; 96361; 96374; 96375; 96376; 99285; J2270 ×2; J2405; J7030

== ENCOUNTER 2020-08-09 02:05 | Emergency (ER) | payer MEDICAID ==
[~2020-08-09] VITALS: Ht 162.6 cm; Wt 104.3 kg
--- NOTE | 2020-08-09 02:10 | NUR ---
urine sent to lab
--- NOTE | 2020-08-09 02:10 | NUR ---
pt bibself c/o bilateral flank pain and left swollen foot. pt aaox4 breathing evenly and unlabored. Per pt, she has lupus nephritis. Took tylennol for pain HAND LEATHER TRIMMER. pt attached to monitor and pox. Pt given blanket and call light within reach.
[2020-08-09 02:34] LABS: BILIRUBIN,URINE Negative (NEGATIVE); COLOR,URINE YELLOW (YELLOW); LEUKOCYTE ESTERASE ,URINE Negative (NEGATIVE); NITRITE, URINE Negative (NEGATIVE); PH,URINE 5.5 (5.0-8.0); PROTEIN,URINE Negative (NEGATIVE); UGLUCOSE Negative (NEGATIVE); UROBILINOGEN,URINE 0.2 EU/dL (0.2)
[2020-08-09] MEDS ORDERED: HYDROCODONE/APAP 10/325MG TABLET ONE (02:43)
[2020-08-09] MEDS ORDERED: ONDANSETRON 4 MG TAB.RAPDIS ONE (02:43)
[2020-08-09] MEDS: HYDROCODONE/APAP 10/325MG TABLET PO ONE (02:45)
[2020-08-09] MEDS: ONDANSETRON 4 MG TAB.RAPDIS SL ONE (02:45)
[2020-08-09 02:52] LABS: BASOPHILS # (AUTO) 0.1 K/uL (0.0-0.2); BASOPHILS % (AUTO) 1.2 % (0.0-2.0); EOSINOPHILS % (AUTO) 1.7 % (0.0-6.0); HEMATOCRIT 42 % (33-45); HEMOGLOBIN 13.9 g/dL (11.5-14.8); LYMPHOCYTES # (AUTO) 2.6 K/uL (0.8-4.8); LYMPHOCYTES % (AUTO) 30.4 % (20.0-44.0); MEAN CORPUSCULAR HGB CONC 33 g/dl (31.0-36.0); MEAN CORPUSCULAR VOLUME 76 fL (82-100); MONOCYTES # (AUTO) 0.8 K/uL (0.1-1.30); MONOCYTES % (AUTO) 9.6 % (2.0-12.0); NEUTROPHILS # (AUTO) 4.9 K/uL (1.8-8.9); NEUTROPHILS % (AUTO) 57.1 % (43.0-81.0); PLATELET COUNT (AUTO) 359 K/uL (150-450); WHITE BLOOD COUNT (AUTO) 8.6 K/uL (4.3-11.0)
[2020-08-09 02:53] LABS: CALCIUM, SERUM 8.8 mg/dL (8.5-10.1); CREATININE 0.8 mg/dL (0.6-1.3); POTASSIUM 3.9 mmol/L (3.5-5.1)
[2020-08-09 02:58] LABS: ALBUMIN 3.6 g/dL (3.4-5.0); BILIRUBIN,TOTAL 0.2 mg/dL (0.2-1.0); TOTAL PROTEIN, SERUM 7.3 g/dL (6.4-8.2)
[2020-08-09] MEDS ORDERED: TAMS-12 PO (03:21)
[2020-08-09] MEDS: TAMSULOSIN 0.4 MG CAP.SR.24H PO ONE (03:25)
[2020-08-09] MEDS ORDERED: TAMSULOSIN 0.4 MG CAP.SR.24H ONE (03:26)
--- NOTE | 2020-08-09 03:28 | NUR ---
Patient discharged to home in stable condition. Written and verbal after care instructions given. Patient verbalizes understanding of instruction. Pt ambulatory with a steady gait
[2020-08-09 03:32] VITALS: BP 123/80
== END 2020-08-09 03:28 | disposition home or self-care (01) ==
LOC: ER 02:10
DX: R10.9 Unspecified abdominal pain (principal); M32.14 Glomerular disease in systemic lupus erythematosus; G89.4 Chronic pain syndrome; E28.2 Polycystic ovarian syndrome; R51.9 Headache, unspecified; J45.909 Unspecified asthma, uncomplicated; D64.9 Anemia, unspecified; Z90.49 Acquired absence of other specified parts of digestive tract; Z90.89 Acquired absence of other organs; Z91.013 Allergy to seafood; Z88.8 Allergy status to other drugs, medicaments and biological substances; Z88.6 Allergy status to analgesic agent; Z79.899 Other long term (current) drug therapy
CPT/HCPCS: 36415; 80048; 80076; 81003; 83690; 84703; 85025; 87086; 99284; Q0162

== ENCOUNTER 2020-11-24 01:49 | Emergency (ER) | payer MEDICAID ==
[~2020-11-24] VITALS: Ht 162.6 cm; Wt 106.6 kg
--- NOTE | 2020-11-24 02:00 | NUR ---
PATIENT BIBSELF C/O LOWER ABD PAIN S/P BLADDER AND UTERINE BIOPSY ON WEDNESDAY. PATIENT TOOK TYLENNOL 3 HOURS AGO FOR "LOW GRADE FEVER". PATIENT IS A/O X 4, RR EVEN AND UNLABORED, NO SOB NOTED. PATIENT CONNECTED TO CARDIAC AND POX MONITOR.
[2020-11-24] MEDS ORDERED: IV NS 0.9% 500 ML BAG IV ONE (02:30)
--- NOTE | 2020-11-24 02:31 | NUR ---
BLOOD SENT TO LAB
--- NOTE | 2020-11-24 02:33 | NUR ---
MD VERBAL ORDER 2MG MORPHINE AND 4MG ZOFRAN IVP
[2020-11-24] MEDS ORDERED: ONDANSETRON HCL/PF 4 MG/2 ML VIAL ONE (02:34)
[2020-11-24] MEDS ORDERED: MORPHINE SULFATE INJ 2 MG/ML DISP.SYRIN ONE (02:34)
[2020-11-24 02:53] LABS: BASOPHILS % (AUTO) 0.2 % (0.0-2.0); EOSINOPHILS % (AUTO) 1.4 % (0.0-6.0); HEMATOCRIT 36 % (33-45); HEMOGLOBIN 11.9 g/dL (11.5-14.8); LYMPHOCYTES # (AUTO) 3.8 K/uL (0.8-4.8); LYMPHOCYTES % (AUTO) 38.8 % (20.0-44.0); MEAN CORPUSCULAR HGB CONC 33 g/dl (31.0-36.0); MEAN CORPUSCULAR VOLUME 78 fL (82-100); MONOCYTES # (AUTO) 0.8 K/uL (0.1-1.30); MONOCYTES % (AUTO) 8.2 % (2.0-12.0); NEUTROPHILS % (AUTO) 51.4 % (43.0-81.0); PLATELET COUNT (AUTO) 342 K/uL (150-450); RED BLOOD CELL COUNT(AUTO) 4.64 MIL/uL (4.0-5.2); WHITE BLOOD COUNT (AUTO) 9.7 K/uL (4.3-11.0)
[2020-11-24 03:06] LABS: CALCIUM, SERUM 8.6 mg/dL (8.5-10.1); CREATININE 0.8 mg/dL (0.6-1.3); POTASSIUM 3.9 mmol/L (3.5-5.1)
[2020-11-24 03:11] LABS: ALBUMIN 3.3 g/dL (3.4-5.0); BILIRUBIN,TOTAL 0.1 mg/dL (0.2-1.0); TOTAL PROTEIN, SERUM 6.7 g/dL (6.4-8.2)
[2020-11-24] MEDS ORDERED: IOHEXOL-300 100 ML VIAL IV ONE (03:15)
[2020-11-24] MEDS ORDERED: IV NS 0.9% 250 ML IV ONE (03:15)
--- NOTE | 2020-11-24 03:38 | NUR ---
URINE SENT TO LAB
--- NOTE | 2020-11-24 04:04 | NUR ---
CALLED JOSE TO HAVE IMAGE READ
[2020-11-24 04:31] LABS: BILIRUBIN,URINE NEGATIVE (NEGATIVE); COLOR,URINE YELLOW (YELLOW); LEUKOCYTE ESTERASE ,URINE TRACE (NEGATIVE); NITRITE, URINE NEGATIVE (NEGATIVE); PH,URINE 7.5 (5.0-8.0); PROTEIN,URINE NEGATIVE (NEGATIVE); UGLUCOSE NEGATIVE (NEGATIVE); UROBILINOGEN,URINE 0.2 EU/dL (0.2)
[2020-11-24 05:12] LABS: BACTERIA,URINE Few /HPF (None Seen); RBC,URINE 21-50 /HPF (0-2); SQUAMOUS EPITHELIAL CELL,UR Few /HPF (None Seen)
[2020-11-24] MEDS ORDERED: CEPH500C2 PO (05:30)
--- NOTE | 2020-11-24 05:39 | NUR ---
Patient discharged to home in stable condition. Written and verbal after care instructions given. Patient verbalizes understanding of instruction.
[2020-11-24 05:40] VITALS: BP 144/78
--- NOTE | 2020-11-26 07:43 | NUR ---
PER PHARMACY, [facility], NEED ORDER FOR 2MG MORPHINE IV AND 4MG IV ZOFRAN. ORDER PLACED ON 11/26/20 FOR MEDS GIVEN ON 11/24/20 AT 0233 TO CORRECT THE ISSUE
[2020-11-26] MEDS ORDERED: ONDANSETRON HCL/PF - ER 4 MG/2 ML VIAL IV ONE (08:00)
[2020-11-26] MEDS ORDERED: MORPHINE SULFATE INJ 2 MG/ML DISP.SYRIN IV ONE (08:00)
== END 2020-11-24 05:41 | disposition home or self-care (01) ==
LOC: ER 01:49
DX: N39.0 Urinary tract infection, site not specified (principal); R10.2 Pelvic and perineal pain; J45.909 Unspecified asthma, uncomplicated; D64.9 Anemia, unspecified; G89.4 Chronic pain syndrome; Z90.49 Acquired absence of other specified parts of digestive tract; Z90.89 Acquired absence of other organs; Z88.8 Allergy status to other drugs, medicaments and biological substances; Z88.6 Allergy status to analgesic agent; Z91.013 Allergy to seafood; Z79.899 Other long term (current) drug therapy
CPT/HCPCS: 36415; 74177; 80048; 80076; 81001; 83605; 83690; 85025; 87077; 87086; 87186; 93005; 96374; 96375; 99285; J2270; J2405; J7040; J7050; Q9967

== ENCOUNTER 2021-03-19 21:33 | Inpatient (IN) | payer MEDICAID ==
[~2021-03-19] VITALS: Ht 162.6 cm; Wt 104.3 kg
[2021-03-19] MEDS ORDERED: KETOROLAC TROMETHAMINE INJ 30 MG/ML VIAL IV ONE (22:30)
[2021-03-19] MEDS ORDERED: IV NS 0.9% 1,000 ML BAG IV ONE (22:30)
[2021-03-19] MEDS ORDERED: ONDANSETRON HCL/PF 4 MG/2 ML VIAL IVP ONE (22:30)
[2021-03-19] MEDS ORDERED: MORPHINE SULFATE INJ 2 MG/ML DISP.SYRIN IV ONE (23:00)
[2021-03-19 23:14] LABS: BASOPHILS % (AUTO) 0.4 % (0.0-2.0); EOSINOPHILS % (AUTO) 1.1 % (0.0-6.0); HEMATOCRIT 40 % (33-45); HEMOGLOBIN 13.4 g/dL (11.5-14.8); LYMPHOCYTES # (AUTO) 2.8 K/uL (0.8-4.8); LYMPHOCYTES % (AUTO) 29.7 % (20.0-44.0); MEAN CORPUSCULAR HGB CONC 33 g/dl (31.0-36.0); MEAN CORPUSCULAR VOLUME 75 fL (82-100); MONOCYTES # (AUTO) 0.9 K/uL (0.1-1.30); MONOCYTES % (AUTO) 9.1 % (2.0-12.0); NEUTROPHILS # (AUTO) 5.6 K/uL (1.8-8.9); NEUTROPHILS % (AUTO) 59.7 % (43.0-81.0); PLATELET COUNT (AUTO) 365 K/uL (150-450); WHITE BLOOD COUNT (AUTO) 9.4 K/uL (4.3-11.0)
[2021-03-19 23:20] LABS: BILIRUBIN,URINE NEGATIVE (NEGATIVE); COLOR,URINE YELLOW (YELLOW); LEUKOCYTE ESTERASE ,URINE NEGATIVE (NEGATIVE); NITRITE, URINE NEGATIVE (NEGATIVE); PROTEIN,URINE NEGATIVE (NEGATIVE); UGLUCOSE 100 MG/DL mg/dL (NEGATIVE); UROBILINOGEN,URINE 0.2 EU/dL (0.2)
[2021-03-19 23:38] LABS: ALBUMIN 3.5 g/dL (3.4-5.0); BILIRUBIN,DIRECT 0.1 mg/dL (0.0-0.2); BILIRUBIN,TOTAL 0.2 mg/dL (0.2-1.0); CALCIUM, SERUM 8.6 mg/dL (8.5-10.1); CREATININE 0.7 mg/dL (0.6-1.3); POTASSIUM 3.7 mmol/L (3.5-5.1); TOTAL PROTEIN, SERUM 7.3 g/dL (6.4-8.2)
[2021-03-20] MEDS ORDERED: ENOXAPARIN SODIUM 40 MG/0.4 ML DISP.SYRIN SQ SCH (01:00)
[2021-03-20] MEDS ORDERED: MORPHINE SULFATE INJ 2 MG/ML DISP.SYRIN IV PRN (01:00)
[2021-03-20] MEDS ORDERED: SUMATRIPTAN SUCCINATE 100 MG TABLET PO PRN (01:00)
[2021-03-20] MEDS ORDERED: IV NS 0.9% 1,000 ML IV SCH (01:00)
[2021-03-20] MEDS ORDERED: ONDANSETRON HCL/PF 4 MG/2 ML VIAL IVP PRN (01:00)
[2021-03-20] MEDS ORDERED: TAMSULOSIN 0.4 MG CAP.SR.24H PO PRN (01:00)
[2021-03-20] MEDS ORDERED: ACETAMINOPHEN 325 MG TABLET PO PRN (01:00)
[2021-03-20] MEDS ORDERED: ENOXAPARIN SODIUM 40 MG/0.4 ML DISP.SYRIN SQ ONE (03:03)
[2021-03-20] MEDS ORDERED: ONDANSETRON HCL/PF 4 MG/2 ML VIAL ONE (03:10)
[2021-03-20] MEDS ORDERED: MORPHINE SULFATE INJ 2 MG/ML DISP.SYRIN ONE (03:11)
[2021-03-20 03:29] VITALS: BP 121/71
[2021-03-20] MEDS ORDERED: TAMSULOSIN 0.4 MG CAP.SR.24H PO SCH (09:00)
[2021-03-20] MEDS ORDERED: OXYBUTYNIN CHLORIDE 5 MG TABLET PO SCH (09:00)
[2021-03-20] MEDS ORDERED: HYDROXYCHLOROQUINE 200 MG TABLET PO SCH (09:00)
[2021-03-20] MEDS ORDERED: buPROPion SR 100 MG TABLET.ER PO SCH (09:00)
[2021-03-21] MEDS ORDERED: METOCLOPRAMIDE HCL 10 MG/2 ML VIAL ONE (09:11)
[2021-03-21] MEDS ORDERED: DOCUSATE SODIUM 100 MG CAPSULE PO ONE (09:12)
[2021-03-21] MEDS ORDERED: TAMSULOSIN 0.4 MG CAP.SR.24H ONE (09:12)
== END 2021-03-20 04:46 | disposition home or self-care (01) | DRG 247 ==
LOC: ER 21:51 → TRANSITION 03-20 01:52
PROVIDERS: ADMIT Internal Medicine; ATTEND Internal Medicine
DX: K56.7 Ileus, unspecified (principal); M32.14 Glomerular disease in systemic lupus erythematosus; M32.9 Systemic lupus erythematosus, unspecified; D64.9 Anemia, unspecified; E28.2 Polycystic ovarian syndrome; Z86.69 Personal history of other diseases of the nervous system and sense organs; Z90.49 Acquired absence of other specified parts of digestive tract; J45.909 Unspecified asthma, uncomplicated; G89.4 Chronic pain syndrome; Z87.441 Personal history of nephrotic syndrome; N20.0 Calculus of kidney; Z88.8 Allergy status to other drugs, medicaments and biological substances; Z91.013 Allergy to seafood; Z79.899 Other long term (current) drug therapy
CPT/HCPCS: 36415; 80048-TC; 80076-TC; 83605-TC; 83690-TC; 84703-TC; 85025-TC; 85730-TC; C9803; G0378; J1650; J2270; J2405; J2765; J7030

== ENCOUNTER 2021-03-20 23:27 | Inpatient (IN) | payer MEDICAID ==
[~2021-03-20] VITALS: Ht 162.6 cm; Wt 104.3 kg
--- NOTE | 2021-03-21 00:40 | NUR ---
BIBS WAS SEEN YESTERDAY FOR ILEUS AMA'D OUT PAIN IS WORST TODAY LAST BM YESTERDAY MORNING. +N/V. PATIENT ALERT AND ORIENTED X3. AMBULATORY WITH NON LABORED BREATHING.
[2021-03-21] MEDS ORDERED: ONDANSETRON HCL/PF 4 MG/2 ML VIAL ONE ×2 (00:44→06:09)
[2021-03-21] MEDS ORDERED: MORPHINE SULFATE INJ 2 MG/ML DISP.SYRIN ONE ×2 (00:44→06:10)
--- NOTE | 2021-03-21 00:45 | NUR ---
PT REFUSED NGT AT THIS TIME; DR LEMUS DO AWARE
[2021-03-21] MEDS ORDERED: MORPHINE SULFATE INJ 2 MG/ML DISP.SYRIN IV ONE (01:00)
[2021-03-21] MEDS ORDERED: ONDANSETRON HCL/PF 4 MG/2 ML VIAL IVP ONE (01:00)
[2021-03-21 01:02] LABS: BASOPHILS # (AUTO) 0.1 K/uL (0.0-0.2); BASOPHILS % (AUTO) 0.8 % (0.0-2.0); EOSINOPHILS % (AUTO) 1.6 % (0.0-6.0); HEMATOCRIT 40 % (33-45); HEMOGLOBIN 13.2 g/dL (11.5-14.8); LYMPHOCYTES # (AUTO) 2.2 K/uL (0.8-4.8); LYMPHOCYTES % (AUTO) 32.4 % (20.0-44.0); MEAN CORPUSCULAR HGB CONC 33 g/dl (31.0-36.0); MEAN CORPUSCULAR VOLUME 75 fL (82-100); MONOCYTES # (AUTO) 0.5 K/uL (0.1-1.30); MONOCYTES % (AUTO) 7.3 % (2.0-12.0); NEUTROPHILS # (AUTO) 3.9 K/uL (1.8-8.9); NEUTROPHILS % (AUTO) 57.9 % (43.0-81.0); PLATELET COUNT (AUTO) 338 K/uL (150-450); RED BLOOD CELL COUNT(AUTO) 5.28 MIL/uL (4.0-5.2); WHITE BLOOD COUNT (AUTO) 6.7 K/uL (4.3-11.0)
--- NOTE | 2021-03-21 01:03 | NUR ---
RAC #20G S/L; PATENT AND INTACT. BLOOD AND COVID ANTIGEN SWAB COLLECTED AND GIVEN TO LAB. PT NOT ABLE TO URINATE AT THIS TIME; WILL F/U & TRY AGAIN LATER.
[2021-03-21 01:27] LABS: ALBUMIN 3.3 g/dL (3.4-5.0); BILIRUBIN,DIRECT 0.1 mg/dL (0.0-0.2); BILIRUBIN,TOTAL 0.2 mg/dL (0.2-1.0); CALCIUM, SERUM 8.7 mg/dL (8.5-10.1); TOTAL PROTEIN, SERUM 7.1 g/dL (6.4-8.2)
[2021-03-21 01:45] LABS: POTASSIUM 3.4 mmol/L (3.5-5.1)
[2021-03-21] MEDS ORDERED: MAGNESIUM HYDROXIDE 30 ML UDC PO PRN (02:00)
[2021-03-21] MEDS ORDERED: ACETAMINOPHEN 325 MG TABLET PO PRN (02:00)
[2021-03-21] MEDS ORDERED: SUMATRIPTAN SUCCINATE 100 MG TABLET PO PRN (02:00)
[2021-03-21] MEDS ORDERED: DOCUSATE SODIUM LIQ 100 MG/10 ML UDC PO SCH (02:00)
[2021-03-21] MEDS ORDERED: ONDANSETRON HCL/PF 4 MG/2 ML VIAL IVP PRN (02:00)
[2021-03-21] MEDS ORDERED: MORPHINE SULFATE INJ 2 MG/ML DISP.SYRIN IV PRN (02:00)
[2021-03-21] MEDS ORDERED: DEXTROSE 50%-WATER 50 ML DISP.SYRIN IV PRN (02:00)
[2021-03-21] MEDS ORDERED: INSULIN REGULAR, HUMAN 100 UNIT/ML 3 ML VIAL SQ PRN (02:00)
[2021-03-21] MEDS ORDERED: POLYETHYLENE GLYCOL 3350 17 GM POWD.PACK PO SCH (02:00)
[2021-03-21] MEDS ORDERED: LABETALOL 20 MG/4 ML VIAL IV PRN (02:00)
[2021-03-21] MEDS ORDERED: IV NS 0.9% 1,000 ML IV PRN (02:00)
--- NOTE | 2021-03-21 02:01 | NUR ---
DR. HART ACCEPTED THE PATIENT. IS ALSO AWARE THAT THE PATIENT HAVE REFUSED TO HAVE A NGT INSERTED.
--- NOTE | 2021-03-21 02:34 | NUR ---
LACTIC ACID 2.8
[2021-03-21] MEDS ORDERED: ENOXAPARIN SODIUM 40 MG/0.4 ML DISP.SYRIN SQ SCH (02:39)
[2021-03-21] MEDS ORDERED: ENOXAPARIN SODIUM 40 MG/0.4 ML DISP.SYRIN SQ ONE (02:47)
[2021-03-21] MEDS ORDERED: METOCLOPRAMIDE HCL 10 MG/2 ML VIAL ONE ×2 (02:47→09:57)
[2021-03-21] MEDS ORDERED: DOCUSATE SODIUM 100 MG CAPSULE PO ONE (02:47)
[2021-03-21] MEDS ORDERED: POLYETHYLENE GLYCOL 3350 17 GM POWD.PACK ONE (02:54)
[2021-03-21] MEDS ORDERED: LORAZEPAM 1 MG TABLET PO PRN (03:00)
[2021-03-21] MEDS: METOCLOPRAMIDE HCL 10 MG/2 ML VIAL IV SCH ×2 (03:02→09:23)
--- NOTE | 2021-03-21 04:21 | NUR ---
URINE COLLECTED AND SENT TO LAB. PT AMBULATORY TO RESTROOM WITH STEAD GAIT. URINE X1 & BM X1 STATED BY PT.
--- NOTE | 2021-03-21 04:47 | NUR ---
PT MAINTAINED ON NPO EXCEPT MEDS DIET. VERBALIZED UNDERSTANDING
[2021-03-21 05:43] LABS: BILIRUBIN,URINE NEGATIVE (NEGATIVE); COLOR,URINE YELLOW (YELLOW); LEUKOCYTE ESTERASE ,URINE MODERATE (NEGATIVE); NITRITE, URINE NEGATIVE (NEGATIVE); PROTEIN,URINE NEGATIVE (NEGATIVE); UGLUCOSE NEGATIVE (NEGATIVE); UROBILINOGEN,URINE 0.2 EU/dL (0.2)
[2021-03-21 06:08] LABS: BACTERIA,URINE Many /HPF (None Seen); MUCUS,URINE Few /LPF (None Seen); RBC,URINE 0-2 /HPF (0-2); SQUAMOUS EPITHELIAL CELL,UR Few /HPF (None Seen)
--- NOTE | 2021-03-21 06:18 | NUR ---
PT C/O 09/17 ABD PAIN & NAUSEA. ADMINISTERED MORPHING 2MG & ZOFRAN ORDERED VIA RAC #20G IVP. WILL REASSESS PAIN, N/V IN 30 MINUTES.
--- NOTE | 2021-03-21 08:06 | NUR ---
THE PATIENT IS RECEIVED IN ER BED #12. THE PATIENT IS ALERT AND ORIENTED X4. DENIES PAIN. IN ROOM AIR AND DENIES SOB. RESPIRATION REGULAR AND UNLABORED. 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 THE PATIENT`S ABDOMEN IS SOFT. WILL CONTINUE TO MONITOR THE PATIENT.
[2021-03-21] MEDS ORDERED: buPROPion SR 100 MG TABLET.ER PO SCH (09:00)
[2021-03-21] MEDS ORDERED: HYDROXYCHLOROQUINE 200 MG TABLET PO SCH (09:00)
[2021-03-21] MEDS ORDERED: DOCUSATE SODIUM 100 MG CAPSULE PO SCH (09:00)
[2021-03-21] MEDS ORDERED: TAMSULOSIN 0.4 MG CAP.SR.24H PO SCH (09:00)
[2021-03-21] MEDS ORDERED: OXYBUTYNIN CHLORIDE 5 MG TABLET PO SCH (09:00)
[2021-03-21] MEDS ORDERED: BLOOD SUGAR DIAGNOSTIC 1 EACH STRIP IN SCH (09:00)
--- NOTE | 2021-03-21 09:31 | NUR ---
WAITING FOR THE PHARM TO DELIVER MORNING MEDS. FOLLOW UP CALL TO PHARM IS DONE.
--- NOTE | 2021-03-21 10:00 | NUR ---
Patient does not wish to proceed with medical care recommended by ELOY. Justin. Patient given information related to possible complications, up to and including , which could occur as a result of leaving the hospital at this time. Patient verbalizes understanding of risks involved due to leaving against medical advice. Patient has signed AMA form. ELOY Anderson made aware.
[2021-03-21 10:01] VITALS: BP 135/92
== END 2021-03-21 10:00 | disposition left against medical advice (07) | DRG 247 ==
LOC: ER 23:39 → TRANSITION 03-21 04:21
PROVIDERS: ADMIT Nurse Practitioner Acute Care; ATTEND Nurse Practitioner Acute Care
DX: K56.7 Ileus, unspecified (principal); E87.2 Acidosis; M32.14 Glomerular disease in systemic lupus erythematosus; E28.2 Polycystic ovarian syndrome; G89.4 Chronic pain syndrome; Z20.822 Contact with and (suspected) exposure to COVID-19; J45.909 Unspecified asthma, uncomplicated; Z86.69 Personal history of other diseases of the nervous system and sense organs; Z79.899 Other long term (current) drug therapy; Z53.29 Procedure and treatment not carried out because of patient's decision for other reasons; Z87.441 Personal history of nephrotic syndrome; N20.0 Calculus of kidney; E87.6 Hypokalemia; D64.9 Anemia, unspecified; E66.9 Obesity, unspecified; Z90.49 Acquired absence of other specified parts of digestive tract; Z68.39 Body mass index [BMI] 39.0-39.9, adult
CPT/HCPCS: 36415; 74018; 80048-TC; 80076-TC; 81001; 82962-TC; 83605-TC; 83690-TC; 84703-TC; 85025-TC; 85730-TC; 87081-TC; 87086-TC; C9803; G0378; J1650; J1815; J2270; J2405; J2765; J7030

== ENCOUNTER 2021-03-24 02:12 | Emergency (ER) | payer MEDICAID ==
[~2021-03-24] VITALS: Ht 162.6 cm; Wt 104.3 kg
--- NOTE | 2021-03-24 04:18 | NUR ---
BIBS FOR C /O ABD PAIN, N/V AND CONSTIPATION. LEFT AMA 3 DAYS AGO FROM [facility] W/ DX OF ILEUS. PT A/OX4. TOLERATING R/A WELL WITH NO SOB. CONNECTED PT TO POX AND MONITOR.
--- NOTE | 2021-03-24 04:38 | NUR ---
DR. HEATH AHMADI AT PT'S BEDSIDE
[2021-03-24] MEDS ORDERED: ACETAMINOPHEN 325 MG TABLET ONE (04:57)
[2021-03-24] MEDS ORDERED: MAG HYDROX/AL HYDROX/SIMETH 30 ML UDC ONE (04:57)
[2021-03-24] MEDS ORDERED: ONDANSETRON 4 MG TAB.RAPDIS ONE (04:58)
[2021-03-24] MEDS ORDERED: FAMOTIDINE (20 MG) 20 MG TABLET ONE (04:58)
[2021-03-24] MEDS ORDERED: FAMOTIDINE (20 MG) 20 MG TABLET PO ONE (05:00)
[2021-03-24] MEDS ORDERED: ACETAMINOPHEN 325 MG TABLET PO ONE (05:00)
[2021-03-24] MEDS ORDERED: ONDANSETRON 4 MG TAB.RAPDIS PO ONE (05:00)
[2021-03-24] MEDS ORDERED: MAG HYDROX/AL HYDROX/SIMETH 30 ML UDC PO ONE (05:00)
--- NOTE | 2021-03-24 05:05 | NUR ---
URINE COLLECTED AND SENT TO LAB
[2021-03-24 05:54] LABS: BILIRUBIN,URINE NEGATIVE (NEGATIVE); COLOR,URINE YELLOW (YELLOW); LEUKOCYTE ESTERASE ,URINE NEGATIVE (NEGATIVE); NITRITE, URINE NEGATIVE (NEGATIVE); PH,URINE 6.5 (5.0-8.0); PROTEIN,URINE NEGATIVE (NEGATIVE); UGLUCOSE NEGATIVE (NEGATIVE); UROBILINOGEN,URINE 0.2 EU/dL (0.2)
--- NOTE | 2021-03-24 06:14 | NUR ---
BALLET SOLOIST AT PT'S BEDSIDE
[2021-03-24] MEDS ORDERED: ONDA4TAB5 PO (07:40)
[2021-03-24] MEDS ORDERED: DOCU-141 PO (07:40)
[2021-03-24 07:47] VITALS: BP 135/74
--- NOTE | 2021-03-24 07:47 | NUR ---
Patient discharged to home in stable condition. Written and verbal after care instructions given. Patient verbalizes understanding of instruction.
== END 2021-03-24 07:48 | disposition home or self-care (01) ==
LOC: ER 02:13
DX: R10.13 Epigastric pain (principal); R10.12 Left upper quadrant pain; J45.909 Unspecified asthma, uncomplicated; D64.9 Anemia, unspecified; M32.10 Systemic lupus erythematosus, organ or system involvement unspecified; G89.4 Chronic pain syndrome; Z87.19 Personal history of other diseases of the digestive system; Z86.011 Personal history of benign neoplasm of the brain; Z87.42 Personal history of other diseases of the female genital tract; Z87.441 Personal history of nephrotic syndrome; Z87.442 Personal history of urinary calculi; Z90.89 Acquired absence of other organs; Z91.013 Allergy to seafood; Z88.8 Allergy status to other drugs, medicaments and biological substances; Z88.1 Allergy status to other antibiotic agents; Z88.6 Allergy status to analgesic agent; Z79.1 Long term (current) use of non-steroidal anti-inflammatories (NSAID); Z79.899 Other long term (current) drug therapy
CPT/HCPCS: 74021; 81003; 84703; 99284; Q0162

== ENCOUNTER 2021-04-15 19:50 | Emergency (ER) | payer MEDICAID ==
[~2021-04-15] VITALS: Ht 162.6 cm; Wt 104.3 kg
[~2021-04-15 19:50] MED LIST changes: +DOCU-141 PO; +ONDA4TAB5 PO
--- NOTE | 2021-04-15 20:12 | NUR ---
PATIENT BIBSELF C/O LEFT SIDE ABD SWELLING X 1 WEEK, WITH OTHER COMPLAINTS CONCIERGE MANAGER. PATIENT IS A/O X 4, RR EVEN AND UNLABORED NO SOB NOTED. PATINET TO ER BED 04, NO ACUTE DISTRESS NOTED. PT CONNECTED TO MONITOR.
--- NOTE | 2021-04-15 20:15 | NUR ---
URINE SPECIMEN SENT TO LAB
--- NOTE | 2021-04-15 20:20 | NUR ---
BLOCK PAVER AT PT'S BEDSIDE
--- NOTE | 2021-04-15 20:21 | NUR ---
URINE COLLECTED AND SENT TO LAB
[2021-04-15 20:22] LABS: BILIRUBIN,URINE NEGATIVE (NEGATIVE); COLOR,URINE YELLOW (YELLOW); LEUKOCYTE ESTERASE ,URINE NEGATIVE (NEGATIVE); NITRITE, URINE NEGATIVE (NEGATIVE); PROTEIN,URINE NEGATIVE (NEGATIVE); UGLUCOSE 250 MG/DL mg/dL (NEGATIVE); UROBILINOGEN,URINE 0.2 EU/dL (0.2)
--- NOTE | 2021-04-15 20:25 | NUR ---
INDUSTRIAL [employer]MICALS SUPERVISOR AT PT'S BEDSIDE
[2021-04-15] MEDS ORDERED: HYDROCODONE/APAP 5/325MG TABLET PO ONE (20:30)
--- NOTE | 2021-04-15 20:31 | NUR ---
XRAY OF ABDOMEN DONE AT BEDSIDE
--- NOTE | 2021-04-15 20:31 | NUR ---
IV CANNULA INSERTED ON RIGHT AC USING 620 NEEDLE.
[2021-04-15 20:39] LABS: BASOPHILS # (AUTO) 0.1 K/uL (0.0-0.2); BASOPHILS % (AUTO) 0.7 % (0.0-2.0); EOSINOPHILS % (AUTO) 1.2 % (0.0-6.0); HEMATOCRIT 38 % (33-45); HEMOGLOBIN 12.5 g/dL (11.5-14.8); LYMPHOCYTES # (AUTO) 2.5 K/uL (0.8-4.8); LYMPHOCYTES % (AUTO) 28.4 % (20.0-44.0); MEAN CORPUSCULAR HGB CONC 33 g/dl (31.0-36.0); MEAN CORPUSCULAR VOLUME 75 fL (82-100); MONOCYTES # (AUTO) 0.8 K/uL (0.1-1.30); MONOCYTES % (AUTO) 8.8 % (2.0-12.0); NEUTROPHILS # (AUTO) 5.3 K/uL (1.8-8.9); NEUTROPHILS % (AUTO) 60.9 % (43.0-81.0); PLATELET COUNT (AUTO) 326 K/uL (150-450); RED BLOOD CELL COUNT(AUTO) 5.07 MIL/uL (4.0-5.2); WHITE BLOOD COUNT (AUTO) 8.8 K/uL (4.3-11.0)
[2021-04-15] MEDS ORDERED: ONDANSETRON HCL/PF 4 MG/2 ML VIAL ONE (20:39)
[2021-04-15] MEDS ORDERED: ONDANSETRON HCL 4 MG/5 ML SOLUTION ONE (20:46)
[2021-04-15 20:51] LABS: CALCIUM, SERUM 8.4 mg/dL (8.5-10.1); CREATININE 0.8 mg/dL (0.6-1.3); POTASSIUM 3.5 mmol/L (3.5-5.1)
[2021-04-15 20:56] LABS: ALBUMIN 3.2 g/dL (3.4-5.0); BILIRUBIN,TOTAL 0.1 mg/dL (0.2-1.0); TOTAL PROTEIN, SERUM 6.6 g/dL (6.4-8.2)
[2021-04-15] MEDS ORDERED: ONDANSETRON HCL 4 MG/5 ML SOLUTION PO ONE (21:00)
[2021-04-15 21:58] VITALS: BP 137/89
--- NOTE | 2021-04-15 21:58 | NUR ---
Patient discharged to home in stable condition. Written and verbal after care instructions given. Patient verbalizes understanding of instruction.
== END 2021-04-15 22:00 | disposition home or self-care (01) ==
LOC: ER 19:52
DX: G89.29 Other chronic pain (principal); R10.12 Left upper quadrant pain; R73.9 Hyperglycemia, unspecified; J45.909 Unspecified asthma, uncomplicated; E28.2 Polycystic ovarian syndrome; D64.9 Anemia, unspecified; Z86.011 Personal history of benign neoplasm of the brain; Z87.738 Personal history of other specified (corrected) congenital malformations of digestive system; Z87.441 Personal history of nephrotic syndrome; Z87.442 Personal history of urinary calculi; Z90.89 Acquired absence of other organs; Z91.013 Allergy to seafood; Z88.8 Allergy status to other drugs, medicaments and biological substances; Z88.6 Allergy status to analgesic agent; Z79.891 Long term (current) use of opiate analgesic; Z79.52 Long term (current) use of systemic steroids; Z79.899 Other long term (current) drug therapy
CPT/HCPCS: 36415; 74021; 80048; 80076; 81003; 85025; 99284; L0172; Q0162; J2405

== ENCOUNTER 2022-04-14 21:57 | Emergency (ER) | payer MEDICAID ==
[~2022-04-14] VITALS: Ht 162.6 cm; Wt 104.3 kg
--- NOTE | 2022-04-15 01:33 | NUR ---
BIBSELF FROM HOME C/O R FLANK PAIN RADIATING TO ABD. DYSURIA X3 DAYS. PT A/OX4. TOLERATING R/A WELL WITH NO RESP DISTRESS. CONNECTED PT TO POX AND MONITOR. SAFETY MEASURES IN PLACE.
--- NOTE | 2022-04-15 01:37 | NUR ---
URINE SPECIMEN SENT TO LAB
[2022-04-15] MEDS ORDERED: ONDANSETRON HCL/PF 4 MG/2 ML VIAL ONE (02:10)
[2022-04-15] MEDS ORDERED: MORPHINE SULFATE INJ 4 MG/ML DISP.SYRIN ONE ×2 (02:19→04:31)
[2022-04-15] MEDS ORDERED: MORPHINE SULFATE INJ 2 MG/ML DISP.SYRIN ONE (02:19)
[2022-04-15 02:23] LABS: BASOPHILS % (AUTO) 0.5 % (0.0-2.0); EOSINOPHILS % (AUTO) 1.3 % (0.0-6.0); HEMATOCRIT 43 % (33-45); HEMOGLOBIN 13.9 g/dL (11.5-14.8); LYMPHOCYTES # (AUTO) 3.3 K/uL (0.8-4.8); LYMPHOCYTES % (AUTO) 40.8 % (20.0-44.0); MEAN CORPUSCULAR HGB CONC 32 g/dl (31.0-36.0); MEAN CORPUSCULAR VOLUME 76 fL (82-100); MONOCYTES # (AUTO) 0.7 K/uL (0.1-1.30); MONOCYTES % (AUTO) 8.7 % (2.0-12.0); NEUTROPHILS # (AUTO) 3.9 K/uL (1.8-8.9); NEUTROPHILS % (AUTO) 48.7 % (43.0-81.0); PLATELET COUNT (AUTO) 366 K/uL (150-450); RED BLOOD CELL COUNT(AUTO) 5.69 MIL/uL (4.0-5.2)
--- NOTE | 2022-04-15 02:27 | NUR ---
RAC #20G S/L BLOOD COLLECTED AND SENT TO LAB
--- NOTE | 2022-04-15 02:28 | NUR ---
PT SIGNED WAIVER FORM; RADIOLOGY AWARE
[2022-04-15] MEDS ORDERED: MORPHINE SULFATE INJ 2 MG/ML DISP.SYRIN IV ONE ×2 (02:30→04:30)
[2022-04-15] MEDS ORDERED: ONDANSETRON HCL/PF 4 MG/2 ML VIAL IVP ONE (02:30)
[2022-04-15] MEDS ORDERED: IV NS 0.9% 1,000 ML BAG IV ONE (02:30)
[2022-04-15] MEDS ORDERED: HYDROMORPHONE INJ 2 MG/ML DISP.SYRIN IV ONE (02:30)
--- NOTE | 2022-04-15 02:32 | NUR ---
PT TAKEN TO CT VIA [facility]IN[facility]
[2022-04-15 02:33] LABS: CALCIUM, SERUM 9.1 mg/dL (8.5-10.1); CREATININE 0.9 mg/dL (0.6-1.3); POTASSIUM 4.1 mmol/L (3.5-5.1)
[2022-04-15 02:34] LABS: BILIRUBIN,URINE NEGATIVE (NEGATIVE); COLOR,URINE YELLOW (YELLOW); LEUKOCYTE ESTERASE ,URINE NEGATIVE (NEGATIVE); NITRITE, URINE NEGATIVE (NEGATIVE); PH,URINE 5.5 (5.0-8.0); PROTEIN,URINE NEGATIVE (NEGATIVE); UGLUCOSE NEGATIVE (NEGATIVE); UROBILINOGEN,URINE 0.2 EU/dL (0.2)
[2022-04-15 02:38] LABS: ALBUMIN 3.7 g/dL (3.4-5.0); BILIRUBIN,DIRECT 0.1 mg/dL (0.0-0.2); BILIRUBIN,TOTAL 0.2 mg/dL (0.2-1.0); TOTAL PROTEIN, SERUM 7.6 g/dL (6.4-8.2)
[2022-04-15 02:46] LABS: BACTERIA,URINE Moderate /HPF (None Seen); RBC,URINE 21-50 /HPF (0-2); SQUAMOUS EPITHELIAL CELL,UR Moderate /HPF (None Seen)
[2022-04-15 02:47] LABS: URINE AMORPHOUS URATE Few /HPF (None Seen)
--- NOTE | 2022-04-15 02:49 | NUR ---
[facility] [address] [facility]
[2022-04-15] MEDS ORDERED: PHEN-705 PO (06:12)
[2022-04-15] MEDS ORDERED: HYDR-4275 PO (06:12)
--- NOTE | 2022-04-15 06:23 | NUR ---
Patient discharged to home in stable condition. RX Written and verbal after care instructions given. Patient verbalizes understanding of instruction. IV removed. Catheter intact and site benign. Pressure and 4x4 applied to site. No bleeding noted. PT ambulatory with a steady gait
[2022-04-15 06:24] VITALS: BP 142/81
== END 2022-04-15 06:25 | disposition home or self-care (01) ==
LOC: ER 22:05
DX: R10.32 Left lower quadrant pain (principal); J45.909 Unspecified asthma, uncomplicated; D64.9 Anemia, unspecified; G89.4 Chronic pain syndrome; Z87.442 Personal history of urinary calculi; Z90.49 Acquired absence of other specified parts of digestive tract; Z79.899 Other long term (current) drug therapy; Z91.013 Allergy to seafood; Z88.1 Allergy status to other antibiotic agents; Z88.8 Allergy status to other drugs, medicaments and biological substances
CPT/HCPCS: 99285; 74176; 96374; 96361; 96375; 96376; 85025; 80048; 87086; 83690; 80076; 84703; 81001; 36415; J2270 ×3; J2405; J7030

== ENCOUNTER 2022-04-27 18:01 | Emergency (ER) | payer MEDICAID ==
[~2022-04-27] VITALS: Ht 162.6 cm; Wt 104.3 kg
[~2022-04-27 18:01] MED LIST changes: +HYDR-4275 PO; +PHEN-705 PO
--- NOTE | 2022-04-27 21:19 | NUR ---
URINE COLLECTED AND SENT TO LAB
--- NOTE | 2022-04-27 21:20 | NUR ---
Pt is noted in bed alert, responsive as she came from home C/O Left Flank pain for couple days with N/Vomiting. Pt care continue as awaits MD orders.
[2022-04-27 22:06] LABS: BASOPHILS # (AUTO) 0.1 K/uL (0.0-0.2); BASOPHILS % (AUTO) 0.7 % (0.0-2.0); EOSINOPHILS % (AUTO) 1.7 % (0.0-6.0); HEMATOCRIT 42 % (33-45); HEMOGLOBIN 13.6 g/dL (11.5-14.8); LYMPHOCYTES # (AUTO) 2.7 K/uL (0.8-4.8); LYMPHOCYTES % (AUTO) 28.8 % (20.0-44.0); MEAN CORPUSCULAR HGB CONC 32 g/dl (31.0-36.0); MEAN CORPUSCULAR VOLUME 76 fL (82-100); MONOCYTES # (AUTO) 0.9 K/uL (0.1-1.30); MONOCYTES % (AUTO) 9.4 % (2.0-12.0); NEUTROPHILS # (AUTO) 5.5 K/uL (1.8-8.9); NEUTROPHILS % (AUTO) 59.4 % (43.0-81.0); PLATELET COUNT (AUTO) 324 K/uL (150-450); RED BLOOD CELL COUNT(AUTO) 5.55 MIL/uL (4.0-5.2); WHITE BLOOD COUNT (AUTO) 9.3 K/uL (4.3-11.0)
[2022-04-27 22:28] LABS: ALBUMIN 3.7 g/dL (3.4-5.0); BILIRUBIN,DIRECT 0.1 mg/dL (0.0-0.2); BILIRUBIN,TOTAL 0.2 mg/dL (0.2-1.0); CALCIUM, SERUM 9.2 mg/dL (8.5-10.1); CREATININE 0.8 mg/dL (0.6-1.3); TOTAL PROTEIN, SERUM 7.5 g/dL (6.4-8.2)
--- NOTE | 2022-04-27 22:48 | NUR ---
pt reported hx of hystrectomy. will proceed with the ct.
--- NOTE | 2022-04-27 22:57 | NUR ---
PT RETURNED TO ER BED [address]
[2022-04-27] MEDS ORDERED: ONDANSETRON HCL/PF 4 MG/2 ML VIAL IV ONE (23:00)
[2022-04-27] MEDS ORDERED: MORPHINE SULFATE INJ 2 MG/ML DISP.SYRIN IV ONE (23:00)
[2022-04-27] MEDS ORDERED: ONDANSETRON HCL/PF 4 MG/2 ML VIAL ONE (23:07)
[2022-04-27] MEDS ORDERED: MORPHINE SULFATE INJ 2 MG/ML DISP.SYRIN ONE (23:07)
--- NOTE | 2022-04-27 23:10 | NUR ---
Pt care continue as she is back from CT with Morphine 2mg IVp and Zofran 4mg IVP given as ordered.
[2022-04-27 23:18] LABS: BILIRUBIN,URINE 1+ (NEGATIVE); COLOR,URINE DARK YELLOW (YELLOW); LEUKOCYTE ESTERASE ,URINE 2+ (NEGATIVE); NITRITE, URINE POSITIVE (NEGATIVE); PROTEIN,URINE 1+ mg/dl (NEGATIVE); UGLUCOSE NEGATIVE (NEGATIVE); UROBILINOGEN,URINE 0.2 EU/dL (0.2)
--- NOTE | 2022-04-27 23:30 | NUR ---
Pt remain alert, responsive as Morphine 2mg IVP and Zofram 4mg IVP noted effecive. Pt care continue.
[2022-04-27 23:38] LABS: BACTERIA,URINE Few /HPF (None Seen); CALCIUM OXALATE CRYSTALS,UR Few /HPF (None Seen); RBC,URINE 21-50 /HPF (0-2); SQUAMOUS EPITHELIAL CELL,UR Many /HPF (None Seen); WBC,URINE 21-50 /HPF (0-3)
[2022-04-27] MEDS ORDERED: CEFD300C3 PO (23:48)
[2022-04-28] MEDS ORDERED: CEFTRIAXONE 1GM BAG (ER ONLY) 1 GM/50 ML PIGGYBACK IV ONE
[2022-04-28] MEDS ORDERED: CEFTRIAXONE 1GM BAG (ER ONLY) 50 ML IV ONE (00:04)
--- NOTE | 2022-04-28 00:16 | NUR ---
Rocphin 1g IVPB given as ordered. Pt care continue as she will be discharge to home after Antibiotic therapy.
[2022-04-28] MEDS ORDERED: CYCL5TAB PO (00:54)
[2022-04-28 00:56] VITALS: BP 128/82
== END 2022-04-28 00:58 | disposition home or self-care (01) ==
LOC: ER 18:04
DX: N12 Tubulo-interstitial nephritis, not specified as acute or chronic (principal); R10.9 Unspecified abdominal pain; J45.909 Unspecified asthma, uncomplicated; Z87.440 Personal history of urinary (tract) infections; Z90.49 Acquired absence of other specified parts of digestive tract; Z90.89 Acquired absence of other organs; Z90.710 Acquired absence of both cervix and uterus; Z91.013 Allergy to seafood; Z88.8 Allergy status to other drugs, medicaments and biological substances; Z79.899 Other long term (current) drug therapy
CPT/HCPCS: 99285; 74176; 96375; 85025; 80048; 87086; 83690; 80076; 81001; 36415; 96365; J2405; J2270; J0696

== ENCOUNTER 2022-05-20 17:15 | Emergency (ER) | payer MEDICAID ==
[~2022-05-20] VITALS: Ht 162.6 cm; Wt 104.3 kg
[~2022-05-20 17:15] MED LIST changes: +CEFD300C3 PO; +CYCL5TAB PO
--- NOTE | 2022-05-20 17:45 | NUR ---
Patient came in to the er c/o left sided abdominal coles since yesterday. On room air, breathing evenly and unlabored. Kept comfortable, will continue to monitor accordingly.
[2022-05-20] MEDS ORDERED: HYDROCODONE/APAP 5/325MG TABLET ONE (17:55)
[2022-05-20] MEDS ORDERED: ONDANSETRON HCL/PF - ER 4 MG/2 ML VIAL IV ONE (18:00)
[2022-05-20] MEDS ORDERED: IV NS 0.9% 1,000 ML BAG IV ONE (18:00)
[2022-05-20] MEDS ORDERED: HYDROCODONE/APAP 5/325MG TABLET PO ONE ×2 (18:00→22:30)
[2022-05-20] MEDS ORDERED: ONDANSETRON HCL/PF 4 MG/2 ML VIAL ONE (18:15)
[2022-05-20 18:16] LABS: BASOPHILS # (AUTO) 0.2 K/uL (0.0-0.2); BASOPHILS % (AUTO) 1.8 % (0.0-2.0); HEMATOCRIT 41 % (33-45); HEMOGLOBIN 13.2 g/dL (11.5-14.8); LYMPHOCYTES # (AUTO) 3.1 K/uL (0.8-4.8); LYMPHOCYTES % (AUTO) 34.1 % (20.0-44.0); MEAN CORPUSCULAR HGB CONC 32 g/dl (31.0-36.0); MEAN CORPUSCULAR VOLUME 78 fL (82-100); MONOCYTES # (AUTO) 0.8 K/uL (0.1-1.30); MONOCYTES % (AUTO) 8.8 % (2.0-12.0); NEUTROPHILS # (AUTO) 4.9 K/uL (1.8-8.9); NEUTROPHILS % (AUTO) 53.3 % (43.0-81.0); PLATELET COUNT (AUTO) 279 K/uL (150-450); RED BLOOD CELL COUNT(AUTO) 5.32 MIL/uL (4.0-5.2); WHITE BLOOD COUNT (AUTO) 9.2 K/uL (4.3-11.0)
[2022-05-20 18:31] LABS: CALCIUM, SERUM 8.9 mg/dL (8.5-10.1); CREATININE 0.7 mg/dL (0.6-1.3); POTASSIUM 3.9 mmol/L (3.5-5.1)
[2022-05-20 18:45] LABS: ALBUMIN 3.4 g/dL (3.4-5.0); BILIRUBIN,TOTAL 0.1 mg/dL (0.2-1.0); TOTAL PROTEIN, SERUM 6.8 g/dL (6.4-8.2)
--- NOTE | 2022-05-20 19:31 | NUR ---
PER PATIENT ALREADY COLLECTED URINE. CALLED LAB AND DOESNT HAVE PT'S URINE SAMPLE. OFFERED PT ANOTHER URINE CUP BUT DOESNT NEED TO URINATE AT THIS TIME. WILL F/U
--- NOTE | 2022-05-20 20:36 | NUR ---
PT NOT ABLE TO URINATE AT THIS TIME; DR CHACE AHMADI AWARE
[2022-05-20 22:36] LABS: BILIRUBIN,URINE NEGATIVE (NEGATIVE); COLOR,URINE YELLOW (YELLOW); LEUKOCYTE ESTERASE ,URINE NEGATIVE (NEGATIVE); NITRITE, URINE NEGATIVE (NEGATIVE); PROTEIN,URINE NEGATIVE (NEGATIVE); UGLUCOSE NEGATIVE (NEGATIVE); UROBILINOGEN,URINE 0.2 EU/dL (0.2)
[2022-05-20] MEDS ORDERED: HYDR-4275 PO (22:45)
[2022-05-20] MEDS ORDERED: ONDA4TAB5 PO (22:45)
[2022-05-21 00:53] VITALS: BP 137/78
== END 2022-05-21 | disposition home or self-care (01) ==
LOC: ER 17:25
DX: G89.29 Other chronic pain (principal); R10.12 Left upper quadrant pain; R11.2 Nausea with vomiting, unspecified; J45.909 Unspecified asthma, uncomplicated; Z90.89 Acquired absence of other organs; Z90.49 Acquired absence of other specified parts of digestive tract; Z90.710 Acquired absence of both cervix and uterus; Z91.013 Allergy to seafood; Z88.8 Allergy status to other drugs, medicaments and biological substances; Z79.899 Other long term (current) drug therapy
CPT/HCPCS: 99283; 96374; 96361; 85025; 80048; 83690; 80076; 81003; 36415; J2405; J7030

== ENCOUNTER 2022-07-08 18:03 | Emergency (ER) | payer MEDICAID ==
[~2022-07-08] VITALS: Ht 162.6 cm; Wt 105.2 kg
--- NOTE | 2022-07-08 18:27 | NUR ---
URINE COLLECTED AND SENT TO LAB.
[2022-07-08] MEDS ORDERED: IV NS 0.9% 1,000 ML BAG IV ONE (18:30)
[2022-07-08 18:58] LABS: BASOPHILS % (AUTO) 0.5 % (0.0-2.0); EOSINOPHILS % (AUTO) 1.4 % (0.0-6.0); HEMATOCRIT 40 % (33-45); HEMOGLOBIN 12.9 g/dL (11.5-14.8); LYMPHOCYTES # (AUTO) 2.1 K/uL (0.8-4.8); LYMPHOCYTES % (AUTO) 28.8 % (20.0-44.0); MEAN CORPUSCULAR HGB CONC 33 g/dl (31.0-36.0); MEAN CORPUSCULAR VOLUME 78 fL (82-100); MONOCYTES # (AUTO) 0.6 K/uL (0.1-1.30); MONOCYTES % (AUTO) 8.4 % (2.0-12.0); NEUTROPHILS # (AUTO) 4.5 K/uL (1.8-8.9); NEUTROPHILS % (AUTO) 60.9 % (43.0-81.0); PLATELET COUNT (AUTO) 308 K/uL (150-450); RED BLOOD CELL COUNT(AUTO) 5.09 MIL/uL (4.0-5.2); WHITE BLOOD COUNT (AUTO) 7.3 K/uL (4.3-11.0)
--- NOTE | 2022-07-08 19:10 | NUR ---
C/O RIGHT SIDED FLANK PAIN X 4 DAYS WITH PAIN ON URINATION.
[2022-07-08 19:12] LABS: BILIRUBIN,URINE NEGATIVE (NEGATIVE); COLOR,URINE YELLOW (YELLOW); LEUKOCYTE ESTERASE ,URINE NEGATIVE (NEGATIVE); NITRITE, URINE NEGATIVE (NEGATIVE); PH,URINE 5.5 (5.0-8.0); PROTEIN,URINE NEGATIVE (NEGATIVE); UGLUCOSE NEGATIVE (NEGATIVE); UROBILINOGEN,URINE 0.2 EU/dL (0.2)
[2022-07-08 19:29] LABS: CALCIUM, SERUM 8.9 mg/dL (8.5-10.1); CREATININE 0.8 mg/dL (0.6-1.3); POTASSIUM 3.7 mmol/L (3.5-5.1)
[2022-07-08 19:32] LABS: ALBUMIN 3.3 g/dL (3.4-5.0); BILIRUBIN,DIRECT 0.1 mg/dL (0.0-0.2); BILIRUBIN,TOTAL 0.3 mg/dL (0.2-1.0); TOTAL PROTEIN, SERUM 6.6 g/dL (6.4-8.2)
--- NOTE | 2022-07-08 19:35 | NUR ---
IV INSERTED BLD DRAWN AND SENT TO LAB
[2022-07-08 21:19] VITALS: BP 150/98
== END 2022-07-08 21:22 | disposition home or self-care (01) ==
LOC: ER 18:06
DX: R10.9 Unspecified abdominal pain (principal); J45.909 Unspecified asthma, uncomplicated; Z76.5 Malingerer [conscious simulation]; Z90.89 Acquired absence of other organs; Z90.49 Acquired absence of other specified parts of digestive tract; Z90.710 Acquired absence of both cervix and uterus; Z91.013 Allergy to seafood; Z88.8 Allergy status to other drugs, medicaments and biological substances; Z79.899 Other long term (current) drug therapy
CPT/HCPCS: 99284; 74176; 96360; 85025; 80048; 83690; 80076; 84703; 81003; 36415; J7030

== ENCOUNTER 2023-04-17 23:03 | Emergency (ER) | payer MEDICAID ==
[~2023-04-17] VITALS: Ht 162.6 cm; Wt 104.3 kg
[2023-04-17 23:24] VITALS: TEMP 99.8
[2023-04-17] MEDS ORDERED: ONDANSETRON HCL/PF 4 MG/2 ML VIAL ONE (23:34)
[2023-04-17] MEDS ORDERED: MORPHINE SULFATE INJ 2 MG/ML DISP.SYRIN ONE (23:35)
[2023-04-17] MEDS: ONDANSETRON HCL/PF - ER 4 MG/2 ML VIAL IV ONE (23:39)
[2023-04-17] MEDS: MORPHINE SULFATE INJ 2 MG/ML DISP.SYRIN IV ONE (23:39)
[2023-04-17 23:41] LABS: BASOPHILS # (AUTO) 0.2 K/uL (0.0-0.2); BASOPHILS % (AUTO) 2.4 % (0.0-2.0); EOSINOPHILS # (AUTO) 0.1 K/uL (0.0-0.7); EOSINOPHILS % (AUTO) 1.2 % (0.0-6.0); HEMATOCRIT 41 % (33-45); HEMOGLOBIN 13.5 g/dL (11.5-14.8); LYMPHOCYTES # (AUTO) 1.7 K/uL (0.8-4.8); LYMPHOCYTES % (AUTO) 16.6 % (20.0-44.0); MEAN CORPUSCULAR HEMOGLOBIN 25 PG (26.0-33.0); MEAN CORPUSCULAR HGB CONC 33 g/dl (31.0-36.0); MEAN CORPUSCULAR VOLUME 76 fL (82-100); MONOCYTES # (AUTO) 0.5 K/uL (0.1-1.30); MONOCYTES % (AUTO) 4.8 % (2.0-12.0); NEUTROPHILS # (AUTO) 7.6 K/uL (1.8-8.9); PLATELET COUNT (AUTO) 401 K/uL (150-450); RED BLOOD CELL COUNT(AUTO) 5.38 MIL/uL (4.0-5.2); RED CELL DISTRIBUTION WIDTH 15.6 % (11.5-15.0); WHITE BLOOD COUNT (AUTO) 10.1 K/uL (4.3-11.0)
[2023-04-17 23:48] LABS: CREATININE 0.7 mg/dL (0.6-1.3); POTASSIUM 3.9 mmol/L (3.5-5.1)
[2023-04-17 23:54] LABS: ALBUMIN 3.5 g/dL (3.4-5.0); BILIRUBIN,TOTAL 0.2 mg/dL (0.2-1.0); TOTAL PROTEIN, SERUM 7.6 g/dL (6.4-8.2)
[2023-04-18 00:37] LABS: APPEARANCE,URINE SLIGHTLY CLOUDY (CLEAR); BILIRUBIN,URINE NEGATIVE (NEGATIVE); BLOOD, URINE 3+ Ery/uL (NEGATIVE); COLOR,URINE YELLOW (YELLOW); KETONES,URINE NEGATIVE (NEGATIVE); LEUKOCYTE ESTERASE ,URINE TRACE (NEGATIVE); NITRITE, URINE NEGATIVE (NEGATIVE); PROTEIN,URINE NEGATIVE (NEGATIVE); UGLUCOSE NEGATIVE (NEGATIVE); UROBILINOGEN,URINE 0.2 EU/dL (0.2)
[2023-04-18 00:38] LABS: ADD URINE CULTURE YES; BACTERIA,URINE Rare /HPF (None Seen); PREGNANCY TEST URINE QUAL NEGATIVE (NEGATIVE); SQUAMOUS EPITHELIAL CELL,UR Few /HPF (None Seen)
[2023-04-18] MEDS ORDERED: CIPR-263 PO (03:28)
[2023-04-18] MEDS ORDERED: MORPHINE SULFATE INJ 2 MG/ML DISP.SYRIN ONE (03:28)
[2023-04-18] MEDS: MORPHINE SULFATE INJ 2 MG/ML DISP.SYRIN IV ONE (03:34)
[2023-04-18 03:54] VITALS: BP 148/94; O2SAT 98
== END 2023-04-18 03:54 | disposition home or self-care (01) ==
LOC: ER 23:15
DX: R10.9 Unspecified abdominal pain (principal); J45.909 Unspecified asthma, uncomplicated; Z90.49 Acquired absence of other specified parts of digestive tract; Z90.89 Acquired absence of other organs; Z90.710 Acquired absence of both cervix and uterus; Z88.6 Allergy status to analgesic agent; Z88.8 Allergy status to other drugs, medicaments and biological substances; Z91.013 Allergy to seafood; Z79.899 Other long term (current) drug therapy
CPT/HCPCS: 99285; 74176; 96374; 96375; 85025; 83690; 36415; 80053; 87086; 84703; 81001; J2405 ×2; J2270 ×2

== ENCOUNTER 2023-04-26 13:36 | Emergency (ER) | payer MEDICAID ==
[~2023-04-26] VITALS: Ht 162.6 cm; Wt 108.9 kg
[~2023-04-26 13:36] MED LIST changes: +CIPR-263 PO
[2023-04-26] MEDS ORDERED: ONDANSETRON HCL/PF 4 MG/2 ML VIAL ONE (14:25)
[2023-04-26] MEDS: IV NS 0.9% 1,000 ML BAG IV ONE (14:35)
[2023-04-26] MEDS: ONDANSETRON HCL/PF 4 MG/2 ML VIAL IVP ONE (14:35)
[2023-04-26 14:46] LABS: BASOPHILS # (AUTO) 0.1 K/uL (0.0-0.2); BASOPHILS % (AUTO) 1.3 % (0.0-2.0); EOSINOPHILS # (AUTO) 0.2 K/uL (0.0-0.7); EOSINOPHILS % (AUTO) 1.9 % (0.0-6.0); HEMATOCRIT 43 % (33-45); HEMOGLOBIN 13.6 g/dL (11.5-14.8); LYMPHOCYTES # (AUTO) 2.6 K/uL (0.8-4.8); LYMPHOCYTES % (AUTO) 29.1 % (20.0-44.0); MEAN CORPUSCULAR HEMOGLOBIN 25 PG (26.0-33.0); MEAN CORPUSCULAR HGB CONC 32 g/dl (31.0-36.0); MEAN CORPUSCULAR VOLUME 77 fL (82-100); MONOCYTES # (AUTO) 0.7 K/uL (0.1-1.30); MONOCYTES % (AUTO) 8.5 % (2.0-12.0); NEUTROPHILS # (AUTO) 5.2 K/uL (1.8-8.9); NEUTROPHILS % (AUTO) 59.2 % (43.0-81.0); PLATELET COUNT (AUTO) 405 K/uL (150-450); RED BLOOD CELL COUNT(AUTO) 5.53 MIL/uL (4.0-5.2); RED CELL DISTRIBUTION WIDTH 15.2 % (11.5-15.0); WHITE BLOOD COUNT (AUTO) 8.8 K/uL (4.3-11.0)
[2023-04-26 14:54] LABS: CALCIUM, SERUM 9.4 mg/dL (8.5-10.1); CREATININE 0.6 mg/dL (0.6-1.3); POTASSIUM 3.9 mmol/L (3.5-5.1)
[2023-04-26 14:59] LABS: ALBUMIN 3.4 g/dL (3.4-5.0); BILIRUBIN,DIRECT 0.1 mg/dL (0.0-0.2); BILIRUBIN,TOTAL 0.2 mg/dL (0.2-1.0); TOTAL PROTEIN, SERUM 7.6 g/dL (6.4-8.2)
[2023-04-26 15:35] LABS: APPEARANCE,URINE Clear (CLEAR); BILIRUBIN,URINE Negative (NEGATIVE); BLOOD, URINE Large Ery/uL (NEGATIVE); COLOR,URINE YELLOW (YELLOW); KETONES,URINE Negative (NEGATIVE); LEUKOCYTE ESTERASE ,URINE Small (NEGATIVE); NITRITE, URINE Negative (NEGATIVE); PH,URINE 5.5 (5.0-8.0); PROTEIN,URINE Negative (NEGATIVE); UGLUCOSE Negative (NEGATIVE); UROBILINOGEN,URINE 0.2 EU/dL (0.2)
[2023-04-26 15:40] LABS: PREGNANCY TEST URINE QUAL NEGATIVE (NEGATIVE)
[2023-04-26 15:59] LABS: ADD URINE CULTURE YES; BACTERIA,URINE 4+ /HPF (None Seen); RBC,URINE 21-50 /HPF (0-2)
[2023-04-26] MEDS ORDERED: CIPR-262 PO (16:30)
[2023-04-26] MEDS ORDERED: CIPROFLOXACIN HCL 500 MG TABLET ONE (16:57)
[2023-04-26] MEDS: CIPROFLOXACIN HCL 500 MG TABLET PO ONE (16:58)
[2023-04-26 17:02] VITALS: BP 144/61; TEMP 98.7; O2SAT 99
== END 2023-04-26 17:02 | disposition home or self-care (01) ==
LOC: ER 13:39
DX: N39.0 Urinary tract infection, site not specified (principal); R10.2 Pelvic and perineal pain; Z87.442 Personal history of urinary calculi; Z90.49 Acquired absence of other specified parts of digestive tract; Z90.89 Acquired absence of other organs; Z90.710 Acquired absence of both cervix and uterus; Z88.6 Allergy status to analgesic agent; Z88.8 Allergy status to other drugs, medicaments and biological substances; Z91.013 Allergy to seafood; Z79.899 Other long term (current) drug therapy
CPT/HCPCS: 99285; 74176; 96374; 96361; 85025; 80048; 87086; 83690; 80076; 84703; 81001; 36415; 84702; J2405; J7030